=== PATIENT | female | born 1985 | race Caucasian/White ===

== ENCOUNTER → 2018-01-22 18:16 | Outpatient (CLI) | payer OTHER, SELFPAY ==
--- NOTE | 2018-01-22 18:25 | US_ITS ---
STUDY: SECOND AND THIRD TRIMESTER OBSTETRICAL ULTRASOUND REASON FOR EXAM: Female, 32 years old. Anatomy scan LMP: TECHNIQUE: Transabdominal PRIOR ULTRASOUND: None. FINDINGS: There is a single intrauterine fetus. The fetus is in a cephalic presentation. There is demonstrated cardiac activity with a heart rate of 150 bpm. There is a normal amniotic fluid volume. The largest amniotic fluid pocket measures 3.9. cm. The placenta is posterior in location and is not low lying. There may be a succenturiate lobe. There are Grade 0 placental changes. The cervix measures 3.6 cm in length. The adnexal regions are not visualized. BIOMETRY: BPD: 50 mm: 21 weeks, 2 days HC: 189mm: 21 weeks, 2 days AC: 174mm: 22 weeks, 3 days FL: 37mm: 21 weeks, 5 days CI: 81 FL/BPD: 73 FL/HC: FL/AC: 21 HC/AC: 1.09 age by current US: 21 weeks, 5 days. [place] by current US: 9.4.18. Estimated weight: 460 grams, +/- 67 grams, 77 %. Age by LMP: 21 weeks, 2 days. [place] by LMP: 9.17.18. ANATOMY: Gender: Male Cranium: Normal lateral ventricles. Normal choroid plexus. Normal cerebellum. Normal cisterna magna. Normal face, nose and lips. Chest: Normal 4-chamber heart. Abdomen/Pelvis: Normal diaphragm. Normal stomach. Normal abdominal wall. Normal cord insertion. Normal 3 vessel cord. Normal kidneys. Normal bladder. Spine: Normal cervical spine. Normal thoracic spine. Normal lumbar spine. Normal sacrum. Extremities: Normal bilateral upper extremities. Normal bilateral lower extremities. US/OB Anatomy Scan IMPRESSION: There is a single live intrauterine with a heart rate of 150 bpm. age by current US: 21 weeks, 5 days. [place] by current US: 9.4.18. Unremarkable anatomic survey. The placenta is posterior in location and is not low lying. There may be a succenturiate lobe. Electronically Signed: Brian Agee MD at 21:18 EDT , Service support ,
== END ==
PROVIDERS: Family Provider Preventive Medicine Occupational Medicine; PCP Preventive Medicine Occupational Medicine; Visit Provider Obstetrics & Gynecology
DX: Z36.89 Encounter for other specified antenatal screening (principal)
CPT/HCPCS: 76805

== ENCOUNTER → 2018-03-10 11:52 | Outpatient (CLI) | payer OTHER, SELFPAY ==
[2018-03-10 13:11] LABS: Absolute Lymphocyte Count 1.53 X10^3/ul (0.83-4.51); Basophil# 0.01 X10^3/uL; Basophil% 0.1 % (0-1); Eosinophil# 0.07 X10^3/uL; Eosinophils% 0.8 % (0-5); Hematocrit 37.3 % (37-47); Hemoglobin 12.8 g/dl (12.0-15.0); Lymphocyte # 1.53 X10^3/ul (4.0); Lymphocyte % 18.5 % (19-41); Mean Corp Hgb Conc 34.3 g/gl (32-36); Mean Corpuscular Volume 99.2 fL (81-99); Mean Platelet Vol. 10.8 fl (6.2-12.0); Monocyte# 0.63 X10^3/uL; Monocyte% 7.6 % (0-10); Neutrophil # 6.02 X10^3/uL (2.7-7.7); Neutrophil % 72.6 % (47-70); Platelet Count 225 K/mm3 (150-450); RBC Distribution Width CV 13.4 % (11.6-14.6); RBC Distribution Width SD 47.6 fl (35.1-43.9); Red Blood Count 3.76 M/mm3 (4.2-5.4); White Blood Count 8.3 K/mm3 (4.4-11.0)
[2018-03-10 13:12] LABS: POSITIVE COUNT NO; POSITIVE DIFFERENTIAL NO; POSITIVE MORPHOLOGY NO
[2018-03-10 13:25] LABS: Glucose Challenge Gest 1H 50g 108 mg/dL (70-140)
== END ==
PROVIDERS: Family Provider Preventive Medicine Occupational Medicine; PCP Preventive Medicine Occupational Medicine; Visit Provider Obstetrics & Gynecology
DX: O09.92 Supervision of high risk pregnancy, unspecified, second trimester (principal)
CPT/HCPCS: 36415; 82950; 85025; 86850; 86900

== ENCOUNTER 2018-04-02 21:45 | Outpatient (CLI) | payer OTHER, SELFPAY ==
[2018-04-02 22:04] VITALS: BMI 35.9
[2018-04-02] MEDS: Betamethasone/Betamethasone 30 MG/5 ML Vial 12 MG IM (22:30)
[2018-04-02 22:35] LABS: ROM Internal Control Test YES-OK TO RESULT pt. (Internal QC); ROM Patient Test POSITIVE (Negative)
[2018-04-02 22:51] LABS: Absolute Lymphocyte Count 2.42 X10^3/ul (0.83-4.51); Absolute Neutrophil Count 7.3 X10^3/uL (2.0-7.7); Basophil# 0.01 X10^3/uL; Basophil% 0.1 % (0-1); Eosinophil# 0.12 X10^3/uL; Eosinophils% 1.1 % (0-5); Hematocrit 39.2 % (37-47); Lymphocyte # 2.42 X10^3/ul (4.0); Lymphocyte % 22.3 % (19-41); Mean Corp Hgb Conc 33.2 g/gl (32-36); Mean Corpuscular Hgb 32.6 pg (27.0-32.0); Mean Corpuscular Volume 98.2 fL (81-99); Mean Platelet Vol. 10.8 fl (6.2-12.0); Monocyte# 1.01 X10^3/uL; Monocyte% 9.3 % (0-10); Neutrophil # 7.26 X10^3/uL (2.7-7.7); Platelet Count 233 K/mm3 (150-450); RBC Distribution Width CV 13.8 % (11.6-14.6); RBC Distribution Width SD 49.1 fl (35.1-43.9); Red Blood Count 3.99 M/mm3 (4.2-5.4); White Blood Count 10.8 K/mm3 (4.4-11.0)
[2018-04-02 22:52] LABS: POSITIVE COUNT NO; POSITIVE DIFFERENTIAL NO; POSITIVE MORPHOLOGY NO
--- NOTE | 2018-04-02 22:52 | OB.TRI.NOTE ---
- Problem List (1) premature rupture of membranes (PPROM) with unknown onset of labor Status: Acute (2) Advanced maternal age risk, currently Status: Acute Comment: normal NIPT, growth us in the the third trimester (3) Supervision of high risk in second trimester Status: Acute Comment: PRR [place] 06/02/18 boy boyfriend Dale History of Present Illness Date of Service: 04/02/18 Reason For Visit: R/O LABOR Date of Service: 04/02/18 Final [place]: 06/02/18 Gestational age: 31 Weeks and 2 Days History of Present Illness: 33 yo @ 31w2d presents with PPROM at 2100 tonight clear fluid. she has had a clomid with negative NIPT screening and no complications. she denies any vb or ctx and admits good fm. Allergies No Known Allergies Allergy (Verified 03/25/18 11:59) - Pertinent Past Medical History Surgical History: Past Surgical History (Last Reviewed 03/25/18 @ 11:59 by Diana Crouch) S/P tonsillectomy palatal expansion Pertinent Past Medical History: Mom's Labs & Results 04/02/18 04/02/18 22:13 22:40 WBC 10.8 RBC 3.99 L Hgb 13.0 Hct 39.2 MCV 98.2 MCH 32.6 H MCHC 33.2 RDW 13.8 RDW Differential 49.1 H Plt Count 233 MPV 10.8 Immature Gran % (Auto) 0.200 Neut % (Auto) 67.0 Lymph % (Auto) 22.3 [place] % (Auto) 9.3 Eos % (Auto) 1.1 Baso % (Auto) 0.1 Absolute Neuts (auto) 7.3 Absolute Lymphs (auto) 2.42 Total Counted Not Reportable Vag Amniotic Fld Detect POSITIVE H Social History Smoking Status Former smoker ROS: General: negative [employer]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 Negative for: Thyromegaly, Lymphadenopathy Cardiovascular: Regular rate Lungs: Normal air movement Abdomen: Soft, Non Tender, Gravid Neurological: Deep Tendon Reflexes 2+/4 and Symmetrical, Neuro grossly intact. 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 Negative for: Vulvar lesions Estimated gestational size: Appropriate for gestational size Presentation: Breech Cervix Dilation (cm): 2.5 Station: -1 Effacement (%): 80 NST - FHR Rate Baby A Baseline: 130 Variability:: Moderate Accelerations:: 15 x 15 Decelerations:: None NST Reactive:: Yes FHR Category:: Category I Uterine Activity:: occasional ctx Impression/Plan 33 yo @ 31w2d presents PPROM clear fluid 2100 tonight gross rupture and positive rom plus, breech on us. reassuring FHT, no signs of infection. ampicillin and azithromycin, celestone given. magnesium 6g bolus. transport to [facility]
--- NOTE | 2018-04-02 22:57 | OB.TRI.HP_ITS ---
- Problem List (1) premature rupture of membranes (PPROM) with unknown onset of labor Status: Acute (2) Advanced maternal age risk, currently Status: Acute Comment: normal NIPT, growth us in the the third trimester (3) Supervision of high risk in second trimester Status: Acute Comment: PRR [place] 06/02/18 boy boyfriend Dale History of Present Illness Date of Service: 04/02/18 Reason For Visit: R/O LABOR Date of Service: 04/02/18 Final [place]: 06/02/18 Gestational age: 31 Weeks and 2 Days History of Present Illness: 33 yo @ 31w2d presents with PPROM at 2100 tonight clear fluid. she has had a clomid with negative NIPT screening and no complications. she denies any vb or ctx and admits good fm. Allergies No Known Allergies Allergy (Verified 03/25/18 11:59) - Pertinent Past Medical History Surgical History: Past Surgical History (Last Reviewed 03/25/18 @ 11:59 by Diana Crouch) S/P tonsillectomy palatal expansion Pertinent Past Medical History: Mom's Labs & Results 04/02/18 04/02/18 22:13 22:40 WBC 10.8 RBC 3.99 L Hgb 13.0 Hct 39.2 MCV 98.2 MCH 32.6 H MCHC 33.2 RDW 13.8 RDW Differential 49.1 H Plt Count 233 MPV 10.8 Immature Gran % (Auto) 0.200 Neut % (Auto) 67.0 Lymph % (Auto) 22.3 [place] % (Auto) 9.3 Eos % (Auto) 1.1 Baso % (Auto) 0.1 Absolute Neuts (auto) 7.3 Absolute Lymphs (auto) 2.42 Total Counted Not Reportable Vag Amniotic Fld Detect POSITIVE H Social History Smoking Status Former smoker ROS: 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 Negative for: Thyromegaly, Lymphadenopathy Cardiovascular: Regular rate Lungs: Normal air movement Abdomen: Soft, Non Tender, Gravid Neurological: Deep Tendon Reflexes 2+/4 and Symmetrical, Neuro grossly intact. 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 Negative for: Vulvar lesions Estimated gestational size: Appropriate for gestational size Presentation: Breech Cervix Dilation (cm): 2.5 Station: -1 Effacement (%): 80 NST - FHR Rate Baby A Baseline: 130 Variability:: Moderate Accelerations:: 15 x 15 Decelerations:: None NST Reactive:: Yes FHR Category:: Category I Uterine Activity:: occasional ctx Impression/Plan 33 yo @ 31w2d presents PPROM clear fluid 2100 tonight gross rupture and positive rom plus, breech on us. reassuring FHT, no signs of infection. ampicillin and azithromycin, celestone given. magnesium 6g bolus. transport to [facility]
[2018-04-02] MEDS: Mag Hydrox/Al Hydrox/Simeth 30 ML UDC PO (23:03)
[2018-04-02] MEDS: Azithromycin 250 MG Tablet 1000 MG PO (23:03)
--- NOTE | 2018-04-02 23:35 | NURSING ---
Report called to [facility] L & D RN, per this nurse.
[2018-04-03 00:01] LABS: Group B Strep DNA By PCR Negative (Negative); Internal Control PASS; Probe Check PASS; Specimen Processing Control PASS
== END 2018-04-03 | disposition home or self-care (01) ==
LOC: WPOUT 22:01 → WP 22:02
PROVIDERS: Family Provider Preventive Medicine Occupational Medicine; PCP Preventive Medicine Occupational Medicine; Visit Provider Obstetrics & Gynecology
DX: O42.913 Preterm premature rupture of membranes, unspecified as to length of time between rupture and onset of labor, third trimester (principal); O32.1XX0 Maternal care for breech presentation, not applicable or unspecified; Z3A.31 31 weeks gestation of pregnancy
CPT/HCPCS: 36415; 59025; 59050; 76815; 84112; 85025; 87081; 87086; 87653; 96372; 99218; G0378; J0702

== ENCOUNTER → 2020-05-13 16:33 | Outpatient (CLI) | payer OTHER, SELFPAY ==
--- NOTE | 2020-05-13 16:38 | US_ITS ---
STUDY: FIRST TRIMESTER OBSTETRICAL ULTRASOUND REASON FOR EXAM: Female, 35 years old. well being. LMP: 02/29/2020. TECHNIQUE: Transvaginal TECHNICAL QUALITY: Adequate. PRIOR ULTRASOUND: None. FINDINGS: There is visualization of a single gestational sac in a normal intrauterine position. The mean sac diameter (MSD) measures 5.01 cm, indicating an estimated gestational age (EGA) of 11 weeks, 1 days. The gestational sac shape is within normal limits. There is a visualized yolk sac. The yolk sac measures 0.44 cm. There is visualization of the placenta. The placenta appears to be anterior and fundal in location and grade 0 in appearance. There is visualization of a live embryo. The crown-rump length (CRL) measures 4.57 cm, indicating an estimated gestational age (EGA) of 11 weeks, 3 days. There is demonstrated cardiac activity with a heart rate of 149 bpm. The estimated gestation age (EGA) by LMP is 10 weeks, 4 days. The estimated date of delivery ([place]) by LMP is 12/05/2020. The estimated gestation age (EGA) by US is 11 weeks, 2 days. The estimated date of delivery ([place]) by US is 11/30/2020. The uterus measures 11.4 x 10.9 x 7.5 cm. There is a 4.0 x 3.5 x 3.2 cm fibroid in the posterior right fundus. The cervix is closed. The right ovary measures 3.0 x 2.3 x 1.5 cm. There are multiple follicles of the right ovary without a dominant cyst. There is no visualized right adnexal mass or complex lesion. The left ovary is not visualized. There is no visualized left adnexal mass or complex lesion. There is no fluid in the cul de sac. US/Init OB < 14Wks US IMPRESSION: 1. Live single intrauterine at 11 weeks, 2 days. [place] is 11/30/2020. 2. heart rate of 149 bpm. 3. Fundal and anterior grade 0 placenta. 4. Normal right ovary. The left ovary is not seen. 5. Right posterior fundal fibroid. Electronically Signed: Sharad Kraft DO at 19:36 EDT Tel [phone], Service support ,
== END ==
PROVIDERS: PCP Preventive Medicine Occupational Medicine; Referring Provider Obstetrics & Gynecology; Visit Provider Obstetrics & Gynecology
DX: O09.92 Supervision of high risk pregnancy, unspecified, second trimester (principal); Z3A.00 Weeks of gestation of pregnancy not specified
CPT/HCPCS: 76801

== ENCOUNTER → 2020-05-26 17:02 | Outpatient (CLI) | payer OTHER, SELFPAY ==
[2020-05-26 16:23] VITALS: BMI 33.0
[2020-05-26 17:50] LABS: Absolute Lymphocyte Count 2.18 X10^3/uL (0.83-4.51); Basophil# 0.03 X10^3/uL; Basophil% 0.4 % (0-1); Eosinophil# 0.13 X10^3/uL; Eosinophils% 1.6 % (0-5); Hematocrit 41.7 % (37-47); Hemoglobin 13.9 g/dL (12.0-15.0); Lymphocyte # 2.18 X10^3/ul (4.0); Lymphocyte % 27.3 % (19-41); Mean Corp Hgb Conc 33.3 g/dL (32-36); Mean Corpuscular Hgb 33.3 pg (27.0-32.0); Mean Corpuscular Volume 99.8 fL (81-99); Mean Platelet Vol. 11.1 fl (6.2-12.0); Monocyte# 0.63 X10^3/uL; Monocyte% 7.9 % (0-10); NRBC Flagged by Analyzer 0 % (0-5); Neutrophil # 4.99 X10^3/uL (2.7-7.7); Neutrophil % 62.5 % (47-70); Platelet Count 266 K/mm3 (150-450); RBC Distribution Width CV 12.6 % (11.6-14.6); RBC Distribution Width SD 45.9 fl (35.1-43.9); Red Blood Count 4.18 M/mm3 (4.2-5.4)
[2020-05-26 18:24] LABS: NATERA MAILED SPECIMEN
[2020-05-26 19:00] LABS: Amphetamine Urine VISTA NEGATIVE (<1000 ng/mL); Barbiturate Urine VISTA NEGATIVE (< 200 ng/mL); Benzodiazepine Urine VISTA NEGATIVE (< 200 ng/mL); Cocaine Urine VISTA NEGATIVE (< 300 ng/mL); Ecstacy Urine VISTA NEGATIVE (< 500 ng/mL); Methadone Urine VISTA NEGATIVE (< 300 ng/mL); PCP Urine VISTA NEGATIVE (< 25 ng/mL); THC Urine VISTA NEGATIVE (< 50 ng/mL); Vista UDS pH Range 6
[2020-05-27 09:20] LABS: HIV - WCH Non-Reactive (Nonreactive); Hepatitis B Surface Antigen Non-Reactive (Nonreactive); Hepatitis C Antibody Non-Reactive (Nonreactive)
[2020-05-31 03:06] LABS: Chlamydia By Nucleic Acid AMP Negative (Negative)
[2020-05-31 09:40] LABS: Gonococcus By Nucleic Acid AMP Negative (Negative)
[2020-05-31 16:02] LABS: HPV APTIMA, High Risk Negative (Negative)
[2020-06-02 04:30] LABS: Rapid Plasmin Reagin (RPR) NONREACTIVE (NONREACTIVE)
== END ==
PROVIDERS: PCP Preventive Medicine Occupational Medicine; Referring Provider Obstetrics & Gynecology; Visit Provider Obstetrics & Gynecology
DX: O09.522 Supervision of elderly multigravida, second trimester (principal); Z3A.00 Weeks of gestation of pregnancy not specified
CPT/HCPCS: 36415; 80307; 85025; 86592; 86703; 86762; 86803; 86850; 86900; 86901; 87086; 87088; 87340; 87491; 87591; 87624; 88175; G0145

== ENCOUNTER → 2020-06-24 13:53 | Outpatient (CLI) | payer OTHER, SELFPAY ==
[2020-05-27 08:42] VITALS: BMI 33.0
[2020-06-24 15:31] LABS: Glucose Challenge Gest 1H 50g 98 mg/dL (70-140)
== END ==
PROVIDERS: PCP Preventive Medicine Occupational Medicine; Visit Provider Obstetrics & Gynecology
DX: O99.210 Obesity complicating pregnancy, unspecified trimester (principal); E66.9 Obesity, unspecified; Z3A.00 Weeks of gestation of pregnancy not specified
CPT/HCPCS: 36415; 82950

== ENCOUNTER → 2020-07-21 16:01 | Outpatient (CLI) | payer OTHER, SELFPAY ==
[2020-06-24 14:32] VITALS: BMI 33.0
[2020-07-20 16:06] VITALS: BMI 34.2
--- NOTE | 2020-07-21 16:02 | US_ITS ---
STUDY: SECOND AND THIRD TRIMESTER OBSTETRICAL ULTRASOUND REASON FOR EXAM: Female, 35 years old ANATOMY LMP: 02/29/2020. TECHNIQUE: Transabdominal TECHNICAL QUALITY: Adequate. PRIOR ULTRASOUND: Comparison is made with prior study dated 05/13/2020. FINDINGS: There is a single intrauterine fetus. The fetus is in a breech presentation. There is demonstrated cardiac activity with a heart rate of 153 bpm. There is a normal amniotic fluid volume. The largest amniotic fluid pocket measures 4.4 cm x 4.0 cm. The amniotic fluid index (YVROSE) is within normal limits. The placenta is anterior in location and is not low lying. There are Grade 1 placental changes. The cervix measures 4 cm in length. The bilateral adnexal regions are normal. Incidental note is made of a 3 cm x 2.5 cm x 3 centimeter uterine fibroid. BIOMETRY: BPD: 4.84 cm: 20 weeks, 4 days HC: 18.75 cm: 21 weeks, 0 days AC: 17.11 cm: 22 weeks, 0 days FL: 3.3 cm: 20 weeks, 2 days CI: 74% FL/BPD: 68% FL/HC: FL/AC: 19% HC/AC: 1.1 age by current US: 20 weeks, 6 days. [place] by current US: 12/02/2020. Estimated weight: 410 grams, +/- 62 grams, 85 %. Age by LMP: 20 weeks, 3 days. [place] by LMP: 12/05/2020. ANATOMY: Gender: Female Cranium: Normal lateral ventricles. Normal choroid plexus. Normal cerebellum. Normal cisterna magna. Normal face, nose and lips. Chest: Normal 4-chamber heart. Abdomen/Pelvis: Normal diaphragm. Normal stomach. Normal abdominal wall. Normal cord insertion. Normal 3 vessel cord. Normal kidneys. Normal bladder. Spine: Normal cervical spine. Normal thoracic spine. Normal lumbar spine. Normal sacrum. Extremities: Normal bilateral upper extremities. Normal bilateral lower extremities. US/OB Anatomy Scan IMPRESSION: Single live intrauterine gestation with a mean gestational age of 20 weeks and 6 days. Electronically Signed: Rocael Sharif, at 13:16 EST , Service support ,
== END ==
PROVIDERS: PCP Preventive Medicine Occupational Medicine; Referring Provider Obstetrics & Gynecology; Visit Provider Obstetrics & Gynecology
DX: O09.90 Supervision of high risk pregnancy, unspecified, unspecified trimester (principal); Z3A.00 Weeks of gestation of pregnancy not specified
CPT/HCPCS: 76805

== ENCOUNTER → 2020-07-28 09:10 | Outpatient (CLI) | payer OTHER, SELFPAY ==
[2020-07-20 16:06] VITALS: BMI 34.2
== END ==
PROVIDERS: PCP Preventive Medicine Occupational Medicine; Referring Provider Obstetrics & Gynecology; Visit Provider Obstetrics & Gynecology
DX: U07.1 COVID-19 (principal)
CPT/HCPCS: 87635; C9803; U0003

== ENCOUNTER → 2020-08-12 16:14 | Outpatient (CLI) | payer OTHER, SELFPAY ==
[2020-06-24 14:32] VITALS: BMI 33.0
[2020-07-20 16:06] VITALS: BMI 34.2
--- NOTE | 2020-08-12 16:20 | US_ITS ---
STUDY: SECOND AND THIRD TRIMESTER OBSTETRICAL ULTRASOUND - LIMITED REASON FOR EXAM: Female, 35 years old cervical length LMP: 02/29/2020 PRIOR ULTRASOUND: 07/21/2020 TECHNIQUE: Transabdominal TECHNICAL QUALITY: Adequate. FINDINGS: There is a single intrauterine fetus. The fetus is in a breech presentation. There is demonstrated cardiac activity with a heart rate of 144 bpm. There is a normal amniotic fluid volume. The placenta is anterior in location and is not low lying. There are Grade 0 placental changes. The cervix measures 4.1 cm in length. Biometry was not performed. Age by LMP: 23 weeks, 4 days. [place] by LMP: 12/05/2020. age by prior US: 24 weeks, 0 days. [place] by prior US: 12/02/2020. Placental wilson at PC1 measuring 2.5 x 2.4 x 1.9 cm US/OB Limited (No Biometrics) IMPRESSION: Limited exam as above. Cervix measuring 4.1 cm in length. Normal appearance of amniotic fluid. heart rate of 144 bpm. Incidentally noted is breech positioning Electronically Signed: Konrad Levine DO at 9:01 EST Tel , Service support ,
== END ==
PROVIDERS: PCP Preventive Medicine Occupational Medicine; Referring Provider Obstetrics & Gynecology; Visit Provider Obstetrics & Gynecology
DX: Z34.92 Encounter for supervision of normal pregnancy, unspecified, second trimester (principal); Z3A.00 Weeks of gestation of pregnancy not specified
CPT/HCPCS: 76815

== ENCOUNTER → 2020-08-26 16:25 | Outpatient (CLI) | payer OTHER, SELFPAY ==
[2020-06-24 14:32] VITALS: BMI 33.0
[2020-08-17 16:08] VITALS: BMI 34.6
--- NOTE | 2020-08-26 16:27 | US_ITS ---
STUDY: SECOND AND THIRD TRIMESTER OBSTETRICAL ULTRASOUND - LIMITED REASON FOR EXAM: Female, 35 years old CERVICAL LENGTH LMP: 02/29/2020 PRIOR ULTRASOUND: 08/12/2020 TECHNIQUE: Transabdominal TECHNICAL QUALITY: Adequate. FINDINGS: There is a single intrauterine fetus. The fetus is in an transverse lie with the head on the maternal left side. There is demonstrated cardiac activity with a heart rate of 153 bpm. There is a normal amniotic fluid volume. The largest amniotic fluid pocket measures 5.0 cm. The amniotic fluid index (YVROSE) is cm. The placenta is anterior in location and is not low lying. There are Grade 0 placental changes. The cervix measures 3.2 cm in length. Age by LMP: 25 weeks, 4 days. [place] by LMP: 12/05/2020. US/OB Limited (No Biometrics) IMPRESSION: Living intrauterine of 25 weeks 4 days as described above. Cervical length of 3.2 cm. Electronically Signed: Ko Muniz MD at 12:16 EST Tel , Service support ,
== END ==
PROVIDERS: PCP Preventive Medicine Occupational Medicine; Referring Provider Obstetrics & Gynecology; Visit Provider Obstetrics & Gynecology
DX: Z36.89 Encounter for other specified antenatal screening (principal)
CPT/HCPCS: 76815

== ENCOUNTER → 2020-09-14 12:52 | Outpatient (CLI) | payer OTHER, SELFPAY ==
[2020-08-17 16:08] VITALS: BMI 34.6
[2020-09-14 13:39] LABS: Glucose Challenge Gest 1H 50g 97 mg/dL (70-140)
[2020-09-14 13:50] LABS: Absolute Lymphocyte Count 1.64 X10^3/uL (0.83-4.51); Absolute Neutrophil Count 6.8 X10^3/uL (2.0-7.7); Basophil# 0.03 X10^3/uL; Basophil% 0.3 % (0-1); Eosinophil# 0.16 X10^3/uL; Eosinophils% 1.7 % (0-5); Hematocrit 38.8 % (37-47); Hemoglobin 12.7 g/dL (12.0-15.0); Lymphocyte # 1.64 X10^3/ul (4.0); Lymphocyte % 17.5 % (19-41); Mean Corp Hgb Conc 32.7 g/dL (32-36); Mean Corpuscular Hgb 33.2 pg (27.0-32.0); Mean Corpuscular Volume 101.3 fL (81-99); Mean Platelet Vol. 10.2 fl (6.2-12.0); Monocyte# 0.67 X10^3/uL; Monocyte% 7.1 % (0-10); NRBC Flagged by Analyzer 0 % (0-5); Neutrophil # 6.83 X10^3/uL (2.7-7.7); Neutrophil % 72.9 % (47-70); Platelet Count 261 K/mm3 (150-450); RBC Distribution Width SD 51.9 fl (35.1-43.9); Red Blood Count 3.83 M/mm3 (4.2-5.4); White Blood Count 9.4 K/mm3 (4.4-11.0)
== END ==
PROVIDERS: PCP Preventive Medicine Occupational Medicine; Referring Provider Obstetrics & Gynecology; Visit Provider Obstetrics & Gynecology
DX: O09.90 Supervision of high risk pregnancy, unspecified, unspecified trimester (principal); Z3A.00 Weeks of gestation of pregnancy not specified; Z13.1 Encounter for screening for diabetes mellitus
CPT/HCPCS: 36415; 82950; 85025

== ENCOUNTER → 2020-10-28 15:55 | Outpatient (CLI) | payer OTHER, SELFPAY ==
[2020-06-24 14:32] VITALS: BMI 33.0
[2020-10-26 16:12] VITALS: BMI 37.0
--- NOTE | 2020-10-28 16:01 | US_ITS ---
STUDY: SECOND AND THIRD TRIMESTER OBSTETRICAL ULTRASOUND - LIMITED REASON FOR EXAM: Female, 35 years old routine survey LMP: 02/29/2020 PRIOR ULTRASOUND: 08/26/2020 TECHNIQUE: Transabdominal TECHNICAL QUALITY: Adequate. FINDINGS: There is a single intrauterine fetus. The fetus is in a cephalic presentation. There is demonstrated cardiac activity with a heart rate of 147 bpm. There is a normal amniotic fluid volume. The largest amniotic fluid pocket measures 6.6 cm. The amniotic fluid index (YVROSE) is 18.0 cm. The placenta is anterior in location and is not low lying. There are Grade 1 placental changes. The cervix measures 3.4 cm in length. Incidental note is made of a right fundal fibroid measuring 4.3 x 3.6 x 3.7 cm BIOMETRY: BPD: 8.64 cm: 34 weeks, 5 days HC: 32.34 cm: 36 weeks, 3 days AC: 32.45 cm: 36 weeks, 2 days FL: 6.79 cm: 34 weeks, 6 days age by prior US: 25 weeks, 4 days. [place] by prior US: 12/05/2020. age by current US: 35 weeks, 4 days. [place] by current US: 11/28/2020. Estimated weight: 2776 grams, +/- 416 grams, 80 percentile. Gender: Indeterminant US/OB Limited With Biometrics IMPRESSION: Single live intrauterine at 35 weeks, 4 days by current ultrasound [place] 11/28/2020. Heart rate 147 bpm. No suspicious sonographic findings, there has been normal growth noted since the previous study. There is a right fundal fibroid measuring 4.3 x 3.6 x 3.7 cm Electronically Signed: Gonzalo Benites MD at 17:06 EST , Service support ,
== END ==
PROVIDERS: PCP Preventive Medicine Occupational Medicine; Referring Provider Obstetrics & Gynecology; Visit Provider Obstetrics & Gynecology
DX: O09.93 Supervision of high risk pregnancy, unspecified, third trimester (principal); Z3A.35 35 weeks gestation of pregnancy
CPT/HCPCS: 76816

== ENCOUNTER → 2020-11-11 16:00 | Outpatient (CLI) | payer OTHER, SELFPAY ==
[2020-10-13 16:09] VITALS: BMI 36.4
[2020-11-11 13:58] VITALS: BMI 37.5
== END ==
PROVIDERS: PCP Preventive Medicine Occupational Medicine; Referring Provider Obstetrics & Gynecology; Visit Provider Obstetrics & Gynecology
DX: O09.90 Supervision of high risk pregnancy, unspecified, unspecified trimester (principal); Z3A.00 Weeks of gestation of pregnancy not specified
CPT/HCPCS: 87081

== ENCOUNTER 2020-11-28 10:00 | Inpatient (IN) | payer OTHER, SELFPAY ==
[2020-10-13 16:09] VITALS: BMI 36.4
[2020-11-24 15:43] VITALS: BMI 38.2
[2020-11-28] VITALS (16 sets, daily range): BP systolic 92–121; BP diastolic 49–75; PULSE 56–88; RESP 14–18; TEMP 36–36.7; O2SAT 94–98; BMI 37.6
[2020-11-28] MEDS: Acetaminophen 500 MG Tablet 1000 MG PO ×3 (10:42→23:03)
--- NOTE | 2020-11-28 10:53 | PCM.HPOB.BLA ---
- Problem List (1) 37 weeks gestation of Status: Acute Comment: electronic test ordered 11/18/20 (2) Advanced maternal age risk, currently Status: Acute Comment: Discussed genetic testing. (3) COVID-19 virus detected Status: Acute Comment: On ASA. Growths q4 in third trimester. growth US nl (4) H/O section Status: Acute Comment: For PPROM with PTL and Breech presentation. Plans RCS 11/28 @ 12 (5) History of tetanus, diphtheria, and acellular pertussis booster vaccination (Tdap) Status: Acute (6) Obesity affecting Status: Acute Comment: Recommended early 1h GTT- NL (7) Status: Acute Qualifiers: Comment: genetic- low risk, carrier-declined, NTD declined. (8) premature rupture of membranes (PPROM) with unknown onset of labor Status: Acute Comment: delivery at 32 weeks; progesterone injections starting at 16 weeks, CL screening q2w starting at 16w, US normal, 08/27 CL normal (9) Supervision of high risk , antepartum Status: Acute Comment: PRR [place] 12/05/20 girl PC: Kevin Spouse: Dale (10) Uterine fibroid Status: Acute Comment: right fundal fibroid measuring 4.3 x 3.6 x 3.7 cm History and Physical Date of Admission: 11/28/20 Intake Vital Signs 11/24/20 Height 5 ft 5 in 11/24/20 Weight: 230 lb 11/24/20 BMI 38.2 11/24/20 BP 124/84 H Intake Visit Reasons: 38WK OB 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 Is patient in pain?: No Allergies No Known Allergies Allergy (Verified 11/24/20 15:44) Medications prenat.vits,oscar,[id number] 1 tab PO QDAY 12/23/17 [History Confirmed 11/24/20] famotidine 20 mg tablet 20 mg PO DAILY #30 tab 09/30/20 [Rx Confirmed 11/24/20] breast pump See Rx Instructions .ROUTE .MEDSUPPLY #1 ea 11/21/20 [Rx Confirmed 11/24/20] Last Menstral Period: 02/29/20 Zika: Zika virus screening: Negative [facility] Medical History Obesity affecting (Acute) premature rupture of membranes (PPROM) with unknown onset of labor (Acute) Surgical History H/O section (Acute) S/P tonsillectomy (Resolved) palatal expansion (Resolved) Family History Mother Hypertension Aunt Breast cancer Grandfather Lung cancer Social History (Updated 11/24/20 @ 15:[address] 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 Date Name GA/Weeks Outcome Route Bth Weight Infant Gen Labor Lgth Anesthesia Del Locatn Provider FOB 04/08/18 Kevin Albrecht 32 live - 4 lbs Male 6 hours spinal [place] HPI 38WK OB : Details: DOMO WATERS is a 35 year old who presents for routine OB visit. OB Visit [place] Calculator Estimated Delivery Date Method Current WG Current Estimate 12/05/20 Ultrasound #1 38w 3d Expected Delivery Route/Plan Planning RLTCS and BTL Will schedule on 11/28 w/ GP Labor Preferences- CB/BF classes: no labor support person: Dale PP control planned: BTL Specific Issue/Plans flu vaccine: given tdap vaccine: given rhogam: na LARC form signed: yes movement and labor precautions reviewed. Problem list reviewed and updated with the most current plan of care details and appropriate orders placed. Relevant counseling for the gestational age provided. Continue routine care and follow up unless otherwise noted in visit notes/problem list details Initial Weight: 203 lb Date EGA Weight BP Urine Prot Glucose FHR FuHt Pres Dilation Effaced St Visit Note 05/26/20 12w 3d 203 lb (+0 oz) 160 GP - [place] by prior US. Denies cramping and bleeding. 06/24/20 16w 4d 203 lb (+0 oz) 112/76 Negative Negative 150 SM- no vb lof some fm. order CL screneing and anatomy scan 07/20/20 20w 2d 205 lb 6 oz (+2 lb 6 oz) 116/78 Negative Negative 145 GP - no LOF, VB, DFM. Reports rash on her abdomen in back. Not consistent with PUPPS. Recommended eval by PCP. Anatomy scan scheduled for tomorrow. 08/17/20 24w 2d 208 lb (+5 lb) 120/72 150 GP - no LOF, VB, DFM, ctx. Still has rash present. Exam this time more concerning for PUPPs. Plan steroid taper. 09/14/20 28w 2d 212 lb 4 oz (+9 lb 4 oz) 118/70 Negative Negative 141 29 MH-Good FM. No VB, LOF. US q2w for CL. Still on kimberlyn inj weekly. tdap, larc, 28 wk labs. 09/30/20 30w 4d 216 lb (+13 lb) Negative Negative 140 31 SM- no vb lof good fm no regular ctx discussed tolac or 10/13/20 32w 3d 219 lb (+16 lb) 114/82 Negative Negative 145 32 GP - no LOF, VB, DFM, ctx. Message sent to schedule RCD and BTL. 10/26/20 34w 2d 223 lb (+20 lb) 130/80 Negative Negative 145 34 GP - no LOF, VB, DFM, ctx. Discussed COVID vaccine in . 11/11/20 36w 4d 226 lb (+23 lb) 122/84 Negative Negative 140 37 Cephalic 2 SM- no vb lof good fm no reuglar ctx gbs done 11/17/20 37w 3d 227 lb (+24 lb) 110/84 110/84 Negative Negative 38 Cephalic SM- no vb lof good fm no regular ctx 11/24/20 38w 3d 230 lb (+27 lb) 124/84 140 39 Cephalic Sm- no vb lof good fm no regular ctx ACOG First Trimester First Trimester: Diagnostics Diagnostics Diagnostics Glucose 1 Hr 50 gm 97 mg/dL (70-140) 09/14/20 Hgb 12.7 g/dL (12.0-15.0) 09/14/20 Hct 38.8 % (37-47) 09/14/20 Details: HIV: Urine Culture: Sequential Screen: NIPT Screen: ROS Const Reports system reviewed and no additional complaints, except as docu Card Reports system reviewed and no additional complaints, except as docu Resp Reports system reviewed and no additional complaints, except as docu GI Reports system reviewed and no additional complaints, except as docu, Reports nausea Reports system reviewed and no additional complaints, except as docu Musc Reports system reviewed and no additional complaints, except as docu Exam Const General: cooperative, healthy appearing, comfortable, anxious HENCO Head: normal to inspection Nose: external nose normal Face and sinus: normal facial exam Neck Neck: normal visual inspection, full ROM, no lymphadenopathy Thyroid: thyroid normal Chest Chest palpation & inspection: normal inspection of the chest Resp Effort & Inspection: normal respiratory effort GI Inspection: normal to inspection Palpation: soft, other (gravid uterus) Other: infant vertex and appropriate size for gestational age Other: Cervical Exam: Extrem General: pedal edema Assessment & Plan Problems 1. premature rupture of membranes (PPROM) with unknown onset of labor O42.919 delivery at 32 weeks; progesterone injections starting at 16 weeks, CL screening q2w starting at 16w, US normal, 08/27 CL normal 2. Supervision of high risk , antepartum O09.90 PRR [place] 12/05/20 girl PC: Kevin Spouse: Dale 3. Z34.90 genetic- low risk, carrier-declined, NTD declined. 4. Obesity affecting O99.210 Recommended early 1h GTT- NL 5. H/O section Z98.891 For PPROM with PTL and Breech presentation. Plans [facility] [email or web address]] 11/28 @ 12 6. COVID-19 virus detected U07.1 On ASA. Growths q4 in third trimester. growth US nl 7. History of tetanus, diphtheria, and acellular pertussis booster vaccination (Tdap) Z92.29 8. Uterine fibroid D25.9 right fundal fibroid measuring 4.3 x 3.6 x 3.7 cm 9. 37 weeks gestation of Z3A.37 electronic test ordered 11/18/20 10. Advanced maternal age risk, currently Discussed genetic testing. UPDATE- I have seen the patient and performed any clinically relevant updates to the history and physical exam. Francie Tavares MD
[2020-11-28] MEDS: Lactated Ringers 1,000 ML 999 ML IV (10:55)
[2020-11-28 11:05] LABS: Absolute Lymphocyte Count 1.56 X10^3/uL (0.83-4.51); Absolute Neutrophil Count 5.6 X10^3/uL (2.0-7.7); Basophil# 0.03 X10^3/uL; Basophil% 0.4 % (0-1); Eosinophil# 0.08 X10^3/uL; Hematocrit 40.3 % (37-47); Hemoglobin 13.5 g/dL (12.0-15.0); Lymphocyte # 1.56 X10^3/ul (4.0); Lymphocyte % 19.6 % (19-41); Mean Corp Hgb Conc 33.5 g/dL (32-36); Mean Corpuscular Hgb 32.7 pg (27.0-32.0); Mean Corpuscular Volume 97.6 fL (81-99); Monocyte# 0.63 X10^3/uL; Monocyte% 7.9 % (0-10); NRBC Flagged by Analyzer 0 % (0-5); Neutrophil % 70.6 % (47-70); Platelet Count 255 K/mm3 (150-450); RBC Distribution Width CV 13.5 % (11.6-14.6); RBC Distribution Width SD 48.2 fl (35.1-43.9); Red Blood Count 4.13 M/mm3 (4.2-5.4); White Blood Count 7.9 K/mm3 (4.4-11.0)
[2020-11-28] MEDS: Sodium Citrate/Citric Acid 30 ML UDC PO (11:53)
--- NOTE | 2020-11-28 12:02 | OP.PCM_ITS ---
Problem List (1) 37 weeks gestation of Status: Acute Comment: electronic test ordered 11/18/20 (2) Advanced maternal age risk, currently Status: Acute Comment: Discussed genetic testing. (3) COVID-19 virus detected Status: Acute Comment: On ASA. Growths q4 in third trimester. growth US nl (4) H/O section Status: Acute Comment: For PPROM with PTL and Breech presentation. Plans RCS 11/28 @ 12 (5) History of tetanus, diphtheria, and acellular pertussis booster vaccination (Tdap) Status: Acute (6) Obesity affecting Status: Acute Comment: Recommended early 1h GTT- NL (7) Status: Acute Qualifiers: Comment: genetic- low risk, carrier-declined, NTD declined. (8) premature rupture of membranes (PPROM) with unknown onset of labor Status: Acute Comment: delivery at 32 weeks; progesterone injections starting at 16 weeks, CL screening q2w starting at 16w, US normal, 08/27 CL normal (9) Supervision of high risk , antepartum Status: Acute Comment: PRR CAROLINA 12/05/20 girl PC: Kevin Spouse: Dale (10) Uterine fibroid Status: Acute Comment: right fundal fibroid measuring 4.3 x 3.6 x 3.7 cm Delivery Classification: Scheduled Final CAROLINA: 12/05/20 Final CAROLINA Source: LMP Gestational age: 39 Weeks and 0 Days expense clerk: Bridget Yoo Type of Anesthesia:: Spinal Special Medications: Ancef 2 g Date of Procedure: 11/28/20 Pre-Operative Diagnosis: Term , hx , declines TOLAC, desire for permanent sterilization Post-Operative Diagnosis: Same Indications: 35-year-old G2, P1 at 39 weeks gestation presents for scheduled repeat and tubal ligation. The risk, benefits, indications, and alternatives to the procedure were discussed with patient and she voices understanding and agrees to proceed. Indications for : Repeat Elective , Desires elective sterilization Description of Procedure: The patient is a at 39 weeks presented for repeat and tubal ligation. Spinal anesthesia was placed without difficulty. Medley catheter was placed. The patient was placed in the dorsal supine position with leftward tilt. Patient was prepped and draped in the normal sterile fashion. Pfannenstiel skin incision was made with the scalpel and carried through to the underlying layer of fascia with the scalpel. Fascia was nicked in the midline and the incision extended laterally. The rectus bellies were dissected off superiorly and inferiorly with out complication both sharply and bluntly. The peritoneum was entered digitally. The incision was stretched and a low transverse uterine incision was made with the scalpel. The infant's head was delivered atraumatically followed by the anterior and posterior shoulders without complication the rest of the delivered. The cord was clamped and cut and the infant was handed off to awaiting nurse. The placenta was delivered spontaneously immediately following and was noted to be intact and have a three- vessel cord. The uterus was exteriorized cleared of all clots and debris, and the incision was closed in a double layer closure using #1 Monocryl. The ovaries and fallopian tubes were noted to be within normal limits. The fallopian tubes were grasped with a Binta clamps bilaterally the and elevated. The LigaSure device was used to cauterize and transect the mesosalpinx and the tube was amputated at the cornual region. Hemostasis was noted. The uterus was returned to the maternal abdomen and gutters were cleared of all clots and debris. The peritoneum was closed with 3-0 Monocryl in a running fashion. Gloves were changed prior to fascial closure. Fascia was closed with 0 PDS in a running fashion. Subcutaneous tissue was copiously irrigated and the skin was closed with 3-0 Monocryl in a subcuticular fashion. Mepilex dressing was applied without complication. Patient was taken to recovery in stable condition. Amniotic Membrane Rupture Type: Artificial Amniotic Fluid Description: Clear Placenta Disposition: [facility] Specimen(s) sent to pathology: placenta Drain: Medley to straight drain Fluids Replaced: 1000 Cord Entanglement: None Cord Vessel Description: 3 Vessels Esitmated Blood Loss (ml): 500 Infant Gender: Female Delayed cord clamping: Yes Antibiotic Given: Ancef 2 grams IV x1 Pt instructed on risks of surgery: Bleeding, Anesthesia Risks, Infection, Permanency, Failure Rate of 1 to 2% Complications: None Multi Select Codes - Urinary/Genital Urinary/Genital CPT Codes: 25416 Delivery global pkg - with tubal ligation
[2020-11-28] MEDS: Cefazolin 2 GM in 0.9% Normal Saline 100 ML IV (12:05)
--- NOTE | 2020-11-28 12:38 | FALS_PTH ---
PATIENT: DOMO WATERS LOC: [facility] U#:[id number] AGE/SX: 35/F ROOM: [facility] RE11/28/[address]: Dr. Francie Tavares MD : [id number] BED: 1 DIS: 11/30/2020 SPEC #: [id number] RECD: 11/28/20 14:41 STATUS: JAMIL RELor #: [id number] GARRISON: 11/28/20 12:[address]: Francie Tavares DEPT: SURGICAL PATHOLOGY RECD BY: Deysi Vallejo ENTERED: 11/29/20 07:48 SP TYPE: FALL TUBES OTHR DR: Sekou Holder DO Tissues: Fallopian tube Procedures: Surgery Specimen Level II HEADER OPERATION: Tubal ligation PRE-OP DIAGNOSIS: Sterilization TISSUE SUBMITTED: Fallopian tubes, suture in left tube MICROSCOPIC DIAGNOSIS Right and left fallopian tubes, bilateral salpingectomies: Two complete segments of fallopian tubes with no pathologic change. AM:dixon 11/30/2020 MICROSCOPIC DESCRIPTION Slides are reviewed. GROSS DESCRIPTION Received in fixative is one container labeled with the patient's name and designated bilateral fallopian tubes, suture in left tube. The specimen consists of two fallopian tubes with an average length of 5.5 cm and has an average diameter of 0.8 cm. Both fallopian tubes have normal fimbriated ends. No mass lesions are identified. Licensed Clinician sections are submitted in two cassettes as follows: 1 - right fallopian tube, 2 - left fallopian tube. / AM:dixon 11/29/20 TC:4 CPT: 63997 x2
[2020-11-28] MEDS: Ketorolac 30 MG/ML Syringe IV ×2 (13:57→19:40)
[2020-11-28] MEDS: Oxytocin 30 units/NS 500 ml 30 UNITS/500 ML IV.SOLN 167 UNITS IV (13:59)
[2020-11-28 14:44] LABS: Pathology Specimen OB SEE PATHOLOGY REPORT
[2020-11-28] MEDS: Lactated Ringers 1,000 ML 100 ML IV (17:11)
[2020-11-28] MEDS: 0.9% Saline Lock 10 ML Syringe IV (19:40)
[2020-11-29] MEDS: Ketorolac 30 MG/ML Syringe IV ×2 (01:17→07:53)
[2020-11-29] MEDS: 0.9% Saline Lock 10 ML Syringe IV ×2 (01:17→07:54)
[2020-11-29 01:20] VITALS: BP 106/57; PULSE 71; RESP 16; TEMP 36.1; O2SAT 98
--- NOTE | 2020-11-29 01:53 | NURSING ---
report received. this RN to assume care of pt at this time.
[2020-11-29 05:14] VITALS: BP 113/64; PULSE 65; RESP 16; TEMP 37
[2020-11-29] MEDS: Acetaminophen 500 MG Tablet 1000 MG PO ×4 (05:20→23:18)
[2020-11-29 05:34] LABS: Hematocrit 38.3 % (37-47); Hemoglobin 12.7 g/dL (12.0-15.0); Mean Corp Hgb Conc 33.2 g/dL (32-36); Mean Corpuscular Hgb 33.3 pg (27.0-32.0); Mean Corpuscular Volume 100.5 fL (81-99); Mean Platelet Vol. 10.8 fl (6.2-12.0); Platelet Count 222 K/mm3 (150-450); RBC Distribution Width CV 13.8 % (11.6-14.6); RBC Distribution Width SD 51.3 fl (35.1-43.9); Red Blood Count 3.81 M/mm3 (4.2-5.4); White Blood Count 10.5 K/mm3 (4.4-11.0)
--- NOTE | 2020-11-29 07:40 | PN.OBGYN_ITS ---
Patient Problems: Active and Suspected Problems (Last Reviewed 11/24/20 @ 15:44 by Fatou Saldivar) 37 weeks gestation of (Acute) electronic test ordered 11/18/20 Uterine fibroid (Acute) right fundal fibroid measuring 4.3 x 3.6 x 3.7 cm History of tetanus, diphtheria, and acellular pertussis booster vaccination (Tdap) (Acute) COVID-19 virus detected (Acute) On ASA. Growths q4 in third trimester. growth US nl H/O section (Acute) For PPROM with PTL and Breech presentation. Plans RCS 11/28 @ 12 Obesity affecting (Acute) Recommended early 1h GTT- NL (Acute) genetic- low risk, carrier-declined, NTD declined. Supervision of high risk , antepartum (Acute) PRR [place] 12/05/20 girl PC: Kevin Spouse: Dale premature rupture of membranes (PPROM) with unknown onset of labor (Acute) delivery at 32 weeks; progesterone injections starting at 16 weeks, CL screening q2w starting at 16w, US normal, 08/27 CL normal Advanced maternal age risk, currently (Acute) Discussed genetic testing. Subjective: Patient doing well without complaints. Tolerating PO. Ambulating and voiding without difficulty. Breast feeding well. Denies chest pain, shortness of breath, calf pain/swelling, fevers, chills, lightheadedness. - Physical Exam Vitals/I&O's: Vital Signs Temp Pulse Resp BP Pulse Ox 98.6 F 65 16 113/64 98 11/29/20 05:14 11/29/20 05:14 11/29/20 05:14 11/29/20 05:14 11/29/20 01:20 Oxygen Delivery Method Room Air Weight: 226 lb 3.108 oz Body Mass Index (BMI) 37.6 Intake and Output for Last 24 Hours 11/27/20 11/28/20 11/29/20 23:59 23:59 23:59 Intake Total 3013.33 / 3013.33 Output Total 400 / 400 400 / 400 Balance 2613.33 / 2613.33 -400 / -400 General: Alert, Oriented x3, Cooperative Abdomen: Soft, Non-Distended - Dressing dry and intact. FF below U Microbiology Past 72 Hours 11/28/20 09:40 Mucosa - Nose SARS-CoV-2 Antigen (Rapid) - Final Laboratory Results 11/28/20 10:50: WBC 7.9, RBC 4.13 L, Hgb 13.5, Hct 40.3, MCV 97.6, MCH 32.7 H, MCHC 33.5, RDW Std Deviation 48.2 H, RDW Coeff of Jennifer 13.5, Plt Count 255, MPV 11.0, Immature Gran % (Auto) 0.500, Neut % (Auto) 70.6 H, Lymph % (Auto) 19.6, [place] % (Auto) 7.9, Eos % (Auto) 1.0, Baso % (Auto) 0.4, Absolute Neuts (auto) 5.6, Absolute Lymphs (auto) 1.56, Nucleated RBC % 0 11/28/20 10:50: Blood Type O POSITIVE, Antibody Screen NEGATIVE 11/29/20 05:20: WBC 10.5, RBC 3.81 L, Hgb 12.7, Hct 38.3, MCV 100.5 H, MCH 33.3 H, MCHC 33.2, RDW Std Deviation 51.3 H, RDW Coeff of Jennifer 13.8, Plt Count 222, MPV 10.8 Current Medications Acetaminophen (Acetaminophen 500 Mg Tablet) 1,000 mg PO Q6H JORGE A Last Admin: 11/29/20 05:20 Dose: 1,000 mg Documented by: Bisacodyl (Bisacodyl 10 Mg Suppository) 10 mg RC UD PRN PRN Reason: If no BM Diphenhydramine HCl (Diphenhydramine 25 Mg Capsule) 25 mg PO Q6H PRN PRN PRN Reason: ITCHING Stop: 11/29/20 13:34 Enoxaparin Sodium (Enoxaparin 40 Mg/0.4 Ml Syringe) 40 mg SC DAILY [facility] Famotidine (Famotidine 20 Mg Tablet) 20 mg PO DAILY [facility] Hydrocortisone (Hydrocortisone 2.5% Crm) 1 applic TOPICAL TID PRN PRN; Protocol PRN Reason: Discomfort Lactated Ringer's () 1,000 mls @ 100 mls/hr IV .Q10H JORGE A Last Admin: 11/29/20 01:39 Dose: Not Given Documented by: Methylergonovine Maleate (Methylergonovine 0.2 Mg/Ml Ampul) 0.2 mg IM X1 PRN PRN Reason: Uterine Atony Nalbuphine HCl (Nalbuphine 10 Mg/Ml Ampul) 5 mg IV Q3H PRN PRN PRN Reason: ITCHING Stop: 11/29/20 13:34 Naloxone HCl (Naloxone 0.4 Mg/Ml Syringe) 0.02 mg IV Q1M PRN PRN Reason: RR <10 and pt unresponsive Naproxen (Naproxen 250 Mg Tablet) 500 mg PO Q8 JORGE A Ondansetron HCl (Ondansetron 4 Mg/2 Ml Vial) 4 mg IV Q4H PRN PRN PRN Reason: Nausea Oxycodone HCl (Oxycodone 5 Mg Tablet) 5 - 10 mg PO Q4H PRN PRN PRN Reason: Pain Score 4-10 Prochlorperazine Edisylate (Prochlorperazine 10 Mg/2 Ml Vial) 10 mg IV Q6H PRN PRN PRN Reason: NAUSEA Senna/Docusate Sodium (Senna/Docusate Sodium 1 Tablet) 0 tablet PO DAILY JORGE A Simethicone (Simethicone 80 Mg Tablet) 80 mg PO PCHS PRN PRN Reason: Indigestion/stomach pain Sodium Chloride (0.9% Saline Lock 10 Ml Syringe) 5 - 15 ml IV UD PRN PRN Reason: SALINE FLUSH Last Admin: 11/29/20 01:17 Dose: 10 ml Documented by: Medical Necessity - Tobacco Use Smoking Status: Former smoker Assessment/Plan All Active Problems (Last Reviewed 11/24/20 @ 15:44 by Fatou Saldivar) 37 weeks gestation of (Acute) Uterine fibroid (Acute) History of tetanus, diphtheria, and acellular pertussis booster vaccination (Tdap) (Acute) COVID-19 virus detected (Acute) H/O section (Acute) Obesity affecting (Acute) (Acute) Supervision of high risk , antepartum (Acute) premature rupture of membranes (PPROM) with unknown onset of labor (Acute) Advanced maternal age risk, currently (Acute) s/p LTCS PPD # 1 1. routine post care 2. breast feeding- support given 3. rh positive 4. rubella immune
[2020-11-29 07:45] VITALS: BP 117/54; PULSE 66; RESP 18; TEMP 36.5; O2SAT 98
[2020-11-29] MEDS: Senna/Docusate Sodium 1 Tablet PO (10:51)
[2020-11-29 13:00] VITALS: BP 115/50; PULSE 60; RESP 17; TEMP 36.5; O2SAT 97
[2020-11-29] MEDS: Enoxaparin 40 MG/0.4 ML Syringe SC (13:04)
[2020-11-29] MEDS: Naproxen 250 MG Tablet 500 MG PO ×2 (14:17→21:40)
[2020-11-29 17:03] VITALS: BP 116/56; PULSE 70; RESP 18; TEMP 36.9; O2SAT 97
[2020-11-29 19:38] VITALS: BP 124/61; PULSE 64; RESP 16; TEMP 36.9; O2SAT 98
[2020-11-30 01:15] VITALS: BP 139/46; PULSE 66; RESP 18; TEMP 36.8; O2SAT 99
[2020-11-30] MEDS: Acetaminophen 500 MG Tablet 1000 MG PO ×3 (05:37→17:25)
[2020-11-30] MEDS: Naproxen 250 MG Tablet 500 MG PO ×2 (05:37→13:40)
[2020-11-30 09:00] VITALS: BP 136/53; PULSE 72; RESP 16; TEMP 36.9; O2SAT 98
[2020-11-30] MEDS: Enoxaparin 40 MG/0.4 ML Syringe SC (10:53)
[2020-11-30] MEDS: Senna/Docusate Sodium 1 Tablet PO (10:55)
[2020-11-30 12:46] VITALS: BP 120/71; PULSE 72; RESP 20; TEMP 36.7; O2SAT 99
--- NOTE | 2020-11-30 12:46 | PN.OBGYN_ITS ---
Patient Problems: Active and Suspected Problems (Last Updated 11/30/20 @ 09:21 by Sarah Scott) Uterine fibroid (Acute) right fundal fibroid measuring 4.3 x 3.6 x 3.7 cm History of tetanus, diphtheria, and acellular pertussis booster vaccination (Tdap) (Acute) Subjective: Patient doing well without complaints. Tolerating PO. Ambulating and voiding without difficulty. Breast feeding well. Denies chest pain, shortness of breath, calf pain/swelling, fevers,B chills, lightheadedness. Objective: Laboratory Tests 11/29/20 11/28/20 11/28/20 Range/Units 05:20 10:50 10:50 WBC 10.5 7.9 (4.4-11.0) K/mm3 RBC 3.81 L 4.13 L (4.2-5.4) M/mm3 Hgb 12.7 13.5 (12.0-15.0) g/dL Hct 38.3 40.3 (37-47) % MCV 100.5 H 97.6 (81-99) fL MCH 33.3 H 32.7 H (27.0-32.0) pg MCHC 33.2 33.5 (32-36) g/dL RDW Std Deviation 51.3 H 48.2 H (35.1-43.9) fl RDW Coeff of Jennifer 13.8 13.5 (11.6-14.6) % Plt Count 222 255 (150-450) K/mm3 MPV 10.8 11.0 (6.2-12.0) fl Immature Gran % (Auto) 0.500 (0.0-0.9) % Neut % (Auto) 70.6 H (47-70) % Lymph % (Auto) 19.6 (19-41) % [place] % (Auto) 7.9 (0-10) % Eos % (Auto) 1.0 (0-5) % Baso % (Auto) 0.4 (0-1) % Absolute Neuts (auto) 5.6 (2.0-7.7) X10^3/uL Absolute Lymphs (auto) 1.56 (0.83-4.51) X10^3/uL Nucleated RBC % 0 (0-5) % Blood Type O POSITIVE Antibody Screen NEGATIVE - Physical Exam Vitals/I&O's: Vital Signs Temp Pulse Resp BP Pulse Ox 98.4 F 72 16 136/53 H 98 11/30/20 09:00 11/30/20 09:00 11/30/20 09:00 11/30/20 09:00 11/30/20 09:00 Oxygen Delivery Method Room Air Weight: 226 lb 3.108 oz Body Mass Index (BMI) 37.6 Intake and Output for Last 24 Hours 11/28/20 11/29/20 11/30/20 23:59 23:59 23:59 Intake Total 3013.33 / 3013.33 Output Total 400 / 400 400 / 400 Balance 2613.33 / 2613.33 -400 / -400 General: Alert, Oriented x3, Cooperative, No apparent distress, Well developed, Well nourished HEENT: Atraumatic, PERRLA, EOMI, Normocephalic Neck: Supple, No JVD Lungs: Normal air movement Cardiovascular: Regular rate Abdomen: Soft, Non Tender, Non-Distended, - - incision c/d/i, fundus firm Extremities: No edema, No Calf Tenderness Neurological: Cranial nerves II-XII grossly intact, Neuro grossly intact Psych/Mental Status: Normal Affect, Appropriate Microbiology Past 72 Hours 11/28/20 09:40 Mucosa - Nose SARS-CoV-2 Antigen (Rapid) - Final Current Medications Acetaminophen (Acetaminophen 500 Mg Tablet) 1,000 mg PO Q6H [facility] Last Admin: 11/30/20 11:08 Dose: 1,000 mg Documented by: Bisacodyl (Bisacodyl 10 Mg Suppository) 10 mg RC UD PRN PRN Reason: If no BM Enoxaparin Sodium (Enoxaparin 40 Mg/0.4 Ml Syringe) 40 mg SC DAILY [facility] Last Admin: 11/30/20 10:53 Dose: 40 mg Documented by: Famotidine (Famotidine 20 Mg Tablet) 20 mg PO DAILY [facility] Last Admin: 11/30/20 10:57 Dose: Not Given Documented by: Hydrocortisone (Hydrocortisone 2.5% Crm) 1 applic TOPICAL TID PRN PRN; Protocol PRN Reason: Discomfort Methylergonovine Maleate (Methylergonovine 0.2 Mg/Ml Ampul) 0.2 mg IM X1 PRN PRN Reason: Uterine Atony Naloxone HCl (Naloxone 0.4 Mg/Ml Syringe) 0.02 mg IV Q1M PRN PRN Reason: RR <10 and pt unresponsive Naproxen (Naproxen 250 Mg Tablet) 500 mg PO Q8 [facility] Last Admin: 11/30/20 05:37 Dose: 500 mg Documented by: Ondansetron HCl (Ondansetron 4 Mg/2 Ml Vial) 4 mg IV Q4H PRN PRN PRN Reason: Nausea Oxycodone HCl (Oxycodone 5 Mg Tablet) 5 - 10 mg PO Q4H PRN PRN PRN Reason: Pain Score 4-10 Prochlorperazine Edisylate (Prochlorperazine 10 Mg/2 Ml Vial) 10 mg IV Q6H PRN PRN PRN Reason: NAUSEA Senna/Docusate Sodium (Senna/Docusate Sodium 1 Tablet) 0 tablet PO DAILY [facility] Last Admin: 11/30/20 10:55 Dose: 1 tablet Documented by: Simethicone (Simethicone 80 Mg Tablet) 80 mg PO PCHS PRN PRN Reason: Indigestion/stomach pain Last Admin: 11/29/20 19:50 Dose: 80 mg Documented by: Sodium Chloride (0.9% Saline Lock 10 Ml Syringe) 5 - 15 ml IV UD PRN PRN Reason: SALINE FLUSH Last Admin: 11/29/20 07:54 Dose: 10 ml Documented by: Medical Necessity - Tobacco Use Smoking Status: Former smoker Assessment/Plan All Active Problems (Last Updated 11/30/20 @ 09:21 by Sarah Scott) Uterine fibroid (Acute) History of tetanus, diphtheria, and acellular pertussis booster vaccination (Tdap) (Acute) 37 weeks gestation of (Resolved) Advanced maternal age risk, currently (Resolved) COVID-19 virus detected (Resolved) H/O section (Resolved) Obesity affecting (Resolved) (Resolved) premature rupture of membranes (PPROM) with unknown onset of labor (Resolved) Supervision of high risk , antepartum (Resolved) s/p LTCS PPD # 2 1. routine post care 2. breast feeding- support given 3. rh positive 4. rubella immune
--- NOTE | 2020-11-30 12:46 | DCINST_ITS ---
Discharge Diet: No Restrictions Discharge Activity: May Not Drive - for 2 weeks or while taking narcotic pain meds., May Shower, May Take a Tub Bath - in 7 days. May resume sexual activity in: 4-6 weeks Lifting Restrictions: 20 pounds Additional Activity Instructions:: Nothing in the vagina for 4-6 weeks. You may return to work/school in 6 weeks. Call your doctor if your incision/area has: Continuous Slow Oozing, Sudden Increased Bleeding, Increased Pain/ Swelling, Increased Redness, Foul Smelling Discharge Call your doctor if you observe: Fever of 101 or Higher Suture Line Care: Avoid Pulling/Pushing, Avoid Pinching/Bending Additional Instructions: If you experience any of the following, contact your healthcare provider. * Bleeding that soaks a pad every hour for 2 hours * Fever 100.4 or higher * Unrelieved incision or abdominal pain * Swelling, redness, discharge or bleeding from your incision or episiotomy site * Your incision begins to separate * Problems urinating (including inability to urinate or burning while urinating). * Visual changes * Severe headache * Flu-like symptoms * Pain or redness in one of both of your breasts * Pain, warmth, tenderness or swelling in your legs, especially the calf area * Frequent nausea and vomiting * Symptoms of depression or anxiety If you experience any of the following, call 911 or go to the nearest Emergency Room. * Chest pain * Problems breathing * Seizure activity * Partial or complete paralysis of a body part, slurred speech, weakness or drooping of the face, or a sudden inability to walk or hold your balance Allergies/Adverse Reactions: Allergies No Known Allergies Allergy (Verified 11/24/20 15:44) Medications to take at Discharge prenat.vits,oscar,[id number]-bsptp 1 tab PO QDAY 12/23/17 breast pump See Rx Instructions .ROUTE .MEDSUPPLY #1 ea 11/21/20 Aspirin, Baby 81 mg PO 11/28/20 Famotidine 20 mg PO DAILY 11/28/20 Follow-Up: Call to make an appointment with your doctor for an incision check in 1-2 weeks. You will also need a 6 week post- follow up appointment. Test results from this visit will be discussed in further detail at your follow- up appointment, if applicable. Primary Care Physician: Sekou Holder DO [Primary Care Provider] -
[2020-11-30 14:45] VITALS: BP 120/71; PULSE 72; RESP 20; TEMP 36.7; O2SAT 99
--- NOTE | 2020-11-30 18:09 | NURSING ---
bands wouldnt scan but bands were verified by nurse and mother upon discharge
== END 2020-11-30 18:00 | disposition home or self-care (01) | DRG 785 ==
PROVIDERS: Obstetrics & Gynecology; Admitting Provider Obstetrics & Gynecology; PCP Preventive Medicine Occupational Medicine; Referring Provider Obstetrics & Gynecology; Visit Provider Obstetrics & Gynecology
PROC: 10D00Z1 Extraction of Products of Conception, Low, Open Approach (ICD-10-PCS; CPT 59514; principal; 2020-11-28 11:45)
DX: O99.214 Obesity complicating childbirth (principal); E66.9 Obesity, unspecified; O34.13 Maternal care for benign tumor of corpus uteri, third trimester; O09.523 Supervision of elderly multigravida, third trimester; O09.823 Supervision of pregnancy with history of in utero procedure during previous pregnancy, third trimester; Z98.891 History of uterine scar from previous surgery; Z3A.38 38 weeks gestation of pregnancy; Z37.0 Single live birth; Z68.38 Body mass index [BMI] 38.0-38.9, adult; Z86.16 Personal history of COVID-19
CPT/HCPCS: 85025; 85027; 86850; 86900; 86901; 87426; 88302; 99218; 99251; J7120; A4216; G0378; G0463; J2405

== ENCOUNTER → 2020-12-03 14:50 | Outpatient (CLI) | payer OTHER, SELFPAY ==
[2020-11-28 10:40] VITALS: BMI 37.6
== END ==
PROVIDERS: PCP Preventive Medicine Occupational Medicine; Referring Provider Obstetrics & Gynecology; Visit Provider Obstetrics & Gynecology
DX: Z39.1 Encounter for care and examination of lactating mother (principal)
CPT/HCPCS: 96158

== ENCOUNTER → 2020-12-12 | Outpatient (CLI) | payer OTHER, SELFPAY | END | disposition home or self-care (01) | LOC: LABSPEC 12:41 | PROVIDERS: PCP Preventive Medicine Occupational Medicine; Referring Provider Nurse Practitioner Women's Health; Visit Provider Nurse Practitioner Women's Health | DX: R30.9 Painful micturition, unspecified (principal) | CPT/HCPCS: 87086; 87088 ==

== ENCOUNTER 2020-12-31 17:11 | Inpatient (IN) | payer OTHER, SELFPAY ==
[2020-12-31] VITALS (12 sets, daily range): BP systolic 91–126; BP diastolic 41–82; PULSE 77–115; RESP 16–20; TEMP 36.8–38.4; O2SAT 94–99; BMI 33.3; BMI 35.9
--- NOTE | 2020-12-31 17:24 | EKG12_ITS ---
Test Reason : Blood Pressure : / mmHG Vent. Rate : 103 BPM Atrial Rate : 103 BPM P-R Int : 166 ms QRS Dur : 094 ms QT Int : 312 ms P-R-T Axes : 036 033 010 degrees QTc Int : 408 ms Sinus tachycardia Otherwise normal ECG Confirmed by BENTLEY SINGH, MARIAH ([id number]), editorial assistant JOSEPH ARRIAZA ([id number]) on 01/03/2021 9:02:26 AM Referred By: TATYANA Confirmed By:LISA HAGAN MD
[2020-12-31 17:42] LABS: Color, Urine Yellow (Yellow); Glucose, Dipstick Normal (Normal); Ketone-Dipstick 15 mg/dl (Negative); Leukocyte Esterase-Dipstick 500 /ul (Negative); Nitrite-Dipstick Negative (Negative); Occult Blood-Urine 250 /ul (Negative); Protein-Dipstick 30 mg/dl (Negative); Urine Bilirubin Dipstick Negative (Negative); Urine Clarity Clear (Clear); Urine Urobilinogen Normal (Normal)
[2020-12-31 17:47] LABS: Bacteria 0 SEEN /hpf (None Seen); Mucous, Urine 0 SEEN /hpf (<or=2+)
[2020-12-31 17:49] LABS: Red Blood Cells-Urine 0-5 SEEN /hpf (0-5); Squamous Epithelial Cells - UA 5-10 SEEN /hpf (5-10); White Blood Cells 0-5 SEEN /hpf (0-5)
[2020-12-31 18:00] LABS: Absolute Lymphocyte Count 0.72 X10^3/uL (0.83-4.51); Absolute Neutrophil Count 19.3 X10^3/uL (2.0-7.7); Basophil% 0.5 % (0-1); Eosinophil# 0.43 X10^3/uL; Hematocrit 46.9 % (37-47); Hemoglobin 15.8 g/dL (12.0-15.0); Lymphocyte # 0.72 X10^3/ul (0.83-4.51); Lymphocyte % 3.4 % (19-41); Mean Corp Hgb Conc 33.7 g/dL (32-36); Mean Corpuscular Hgb 32.8 pg (27.0-32.0); Mean Corpuscular Volume 97.3 fL (81-99); Mean Platelet Vol. 10.6 fl (6.2-12.0); Monocyte# 0.79 X10^3/uL; Monocyte% 3.7 % (0-10); NRBC Flagged by Analyzer 0 % (0-5); Neutrophil # 19.25 X10^3/uL (2.7-7.7); Neutrophil % 89.9 % (47-70); Platelet Count 227 K/mm3 (150-450); RBC Distribution Width CV 13.6 % (11.6-14.6); RBC Distribution Width SD 49.3 fl (35.1-43.9); Red Blood Count 4.82 M/mm3 (4.2-5.4); White Blood Count 21.4 K/mm3 (4.4-11.0)
--- NOTE | 2020-12-31 18:04 | RAD_ITS ---
STUDY: X-RAY CHEST REASON FOR EXAM: Female, 35 years old. Dyspnea TECHNIQUE: AP COMPARISON: None. FINDINGS: EKG leads project over the chest. The lungs are clear and expanded. There is no demonstrated pleural abnormality. Normal size heart. Normal mediastinum and heriberto. Normal visualized pulmonary arteries. There is atherosclerotic tortuosity of the aortic arch and descending thoracic aorta. Normal visualized thoracic spine. Normal visualized ribs, clavicles, and shoulders. There is no demonstrated abnormality of the visualized soft tissue structures of the upper abdomen. RAD/Chest 1 View (Portable) IMPRESSION: Nonacute portable x-ray examination of the chest. Electronically Signed: Francisco Naranjo MD ([place]) at 18:19 EDT , Service support ,
--- NOTE | 2020-12-31 18:04 | ED.DCSUM_ITS ---
History of Present Illness Chief Complaint: General Illness Informant: Patient Onset: Yesterday Context: Sudden Onset Timing: Continuous Quality: Myalgias, cough, shortness of breath and fever Location: Generalized and respiratory Current Severity: Mild Maximum Severity: Moderate Worsened by: Dyspnea on exertion Relieved by: Nothing Associated Symptoms: Headache and neck pain without stiffness or photophobia Narrative: Presents with fever of 102.0 ?F, headache, neck pain, myalgias, arthralgias, dyspnea. She was started on antibiotics 2 weeks ago for urinary tract infection. She has not completed her course of antibiotics because she has not been compliant. She denies dysuria, frequency, urgency or hematuria. She denies back or flank pain. She denies photophobia. She denies ear pain or ear drainage. She denies sore throat. She may have a slight cough. She denies abdominal pain. She denies rash. She does report aches in her arms and legs. She denies ill contact. She delivered less than a month ago. Prior similar symptoms: No Recent Illness/Hospitalization: Yes - Delivery - Past Medical History (1) No significant past medical history Status: Acute Past Medical History - Allergies and Home Meds Allergies/Adverse Reactions: Allergies No Known Allergies Allergy (Verified 12/31/20 17:11) Primary Care Physician: Sekou Holder DO [Primary Care Provider] - Prior records reviewed: Yes Surgical History: noncontributory Lives: Spouse/ Significant Other, With Family Smoking Status: Never smoker Alcohol: Rare Drugs: None Review of Systems General: Reports: Chills, Fever, Malaise. Denies: Subjective, Sweats, Weight loss Eyes: Reports: -. Denies: Visual changes - bilaterally, Blurred Vision - bilaterally, Diplopia ENT: Reports: - - Denies congestion and postnasal drainage as well. She did report posterior neck pain.. Denies: Bilateral ear pain, Rhinorrhea, Sore throat Cardiovascular: Reports: Chest pain, Palpitations. Denies: Heart racing Respiratory: Reports: Dyspnea, Dyspnea on exertion. Denies: Sputum, Orthopnea, Paroxysmal nocturnal dyspnea Gastrointestinal: Reports: Nausea. Denies: Abdominal pain, Vomiting, Diarrhea, Melena, Hematochezia Genitourinary: Denies: Dysuria, Hematuria, Frequency Musculoskeletal: Reports: Myalgias, Arthralgias. Denies: Neck pain, Back pain, Swelling, Extremity Pain Skin: Denies: Rash, Wounds Neurological: Reports: Headache, Weakness. Denies: Parasthesia, Numbness Endocrine: Denies: Polyuria, Polydipsia Hematologic: Denies: Easy bruising, Easy bleeding Allergy: Denies: Uticaria Physical Exam Vital Signs/Narrative: Vital Signs Temp Pulse Resp BP Pulse Ox 12/31/20 17:12 98.4 F 115 H 20 H 126/81 H 98 Inital Vital Signs reviewed: Yes General: Well nourished, Well developed, Obese, - - Patient appears ill and appears tachypneic. Head: Normocephalic, Atraumatic Eyes: Perrl, EOMI. Negative for: Pale conjunctiva, Scleral icterus ENT: No rhinorrhea, TM's clear, Dry mucous membranes Neck: Supple, Nontender, No lymphadenopathy, No JVD Cardiovascular: Regular rhythm, No murmurs, Normal S1, Normal S2, Tachycardia Respiratory: CTA bilaterally, Chest nontender, Decreased Air Movement. Negative for: No distress Abdomen: Soft, Nontender, Nondistended, Normal bowel sounds, No masses Rectal: Deferred Back: Nontender, Normal Inspection. Negative for: CVA tenderness Extremities: No edema, Tenderness. Negative for: Calf Tenderness Skin: No rash, No Trauma, Pallor. Negative for: Cyanosis, Diaphoresis, Jaundice Neurological: Alert, Oriented x3, Cranial nerves II-XII grossly intact, Normal Strength, Normal Sensation Psychological: Depressed Diagnostic/Tx/Re-eval Chest X-Ray - ED: 1 View, Read by ED Physician - View chest x-ray was interpreted by me at 09/23/2006. Cardiac silhouette and size normal. Mediastinum normal. Lung parenchyma normal. No effusion noted. Osseous structures are unremarkable Impressions Chest X-Ray 12/31/20 18:04 IMPRESSION: Nonacute portable x-ray examination of the chest. Electronically Signed: Francisco Naranjo MD (Brooks) at 18:19 EDT , Service support , Chest CTA 12/31/20 18:26 IMPRESSION: 1. No central or segmental pulmonary embolism. 2. No airspace consolidation/pneumonia. 3. Mild splenomegaly. Electronically Signed: Francisco Naranjo MD (Brooks) at 18:51 EDT , Service support , 12/31/20 18:04 Chest 1 View (Portable) [RAD] Stat 12/31/20 18:26 CTA Chest W/WO Contrast [CT] Stat 12/31/20 17:30 Nasal Secretion SARS-CoV-2 Antigen (Rapid) - Final Laboratory Results 12/31/20 12/31/20 12/31/20 17:30 17:50 17:50 WBC 21.4 H RBC 4.82 Hgb 15.8 H Hct 46.9 MCV 97.3 MCH 32.8 H MCHC 33.7 RDW Std Deviation 49.3 H RDW Coeff of Jennifer 13.6 Plt Count 227 MPV 10.6 Immature Gran % (Auto) 0.500 Neut % (Auto) 89.9 H Lymph % (Auto) 3.4 L [place] % (Auto) 3.7 Eos % (Auto) 2.0 Baso % (Auto) 0.5 Absolute Neuts (auto) 19.3 H Absolute Lymphs (auto) 0.72 L Nucleated RBC % 0 D-Dimer Quant (PE/DVT) 0.82 H* Sodium Potassium Chloride Carbon Dioxide Anion Gap BUN Creatinine Estim Creat Clear Calc Est GFR (MDRD) Af Amer Est GFR (MDRD) Non-Af BUN/Creatinine Ratio Glucose Lactic Acid Calcium Urine Color Yellow Urine Clarity Clear Urine pH 8.0 Ur Specific [place] 1.010 Urine Protein 30 H Urine Glucose (UA) Normal Urine Ketones 15 H Urine Occult Blood 250 H Urine Nitrite Negative Urine Bilirubin Negative Urine Urobilinogen Normal Ur Leukocyte Esterase 500 H Urine RBC 0-5 SEEN Urine WBC 0-5 SEEN Ur Squamous Epith Cells 5-10 SEEN Urine Bacteria 0 SEEN Urine Mucus 0 SEEN 12/31/20 12/31/20 17:50 17:50 WBC RBC Hgb Hct MCV MCH MCHC RDW Std Deviation RDW Coeff of Jennifer Plt Count MPV Immature Gran % (Auto) Neut % (Auto) Lymph % (Auto) [place] % (Auto) Eos % (Auto) Baso % (Auto) Absolute Neuts (auto) Absolute Lymphs (auto) Nucleated RBC % D-Dimer Quant (PE/DVT) Sodium 136 Potassium 3.5 Chloride 105 Carbon Dioxide 24.0 Anion Gap 7 BUN 10 Creatinine 1.15 H Estim Creat Clear Calc 60.27 Est GFR (MDRD) Af Amer 68 Est GFR (MDRD) Non-Af 56 L BUN/Creatinine Ratio 8.7 L Glucose 113 H Lactic Acid 2.6 H* Calcium 8.7 Urine Color Urine Clarity Urine pH Ur Specific [place] Urine Protein Urine Glucose (UA) Urine Ketones Urine Occult Blood Urine Nitrite Urine Bilirubin Urine Urobilinogen Ur Leukocyte Esterase Urine RBC Urine WBC Ur Squamous Epith Cells Urine Bacteria Urine Mucus They reveals no pulmonary abnormality and no evidence of pulmonary embolus. Lactate is elevated. She was reassessed at 1921. Since there is no obvious source with meeting planner breast exam was performed which was unremarkable. Patient states she no longer has vaginal bleeding or discharge. She states she stopped within the last 24 hours. There is no odor or discoloration noted. Patient has no abdominal pain either. Urine is no longer infected even though she has not been compliant with her antibiotics. She does appear ill. She is flushed, tachycardic, tachypneic and febrile. Will treat with antibiotics for unknown source. Spoke with OB. They recommended a CT of the pelvis and she had a rule out abscess. - Rhythm Strip Rhythm Strip: Sinus Tach Rate: 107 Ectopy: None - EKG Initial EKG Interpretation: Sinus Tachycardia - This tachycardia with a ventricular rate of 103. EKG is otherwise normal. CT interval is 106 6 ms. Cures duration 94 ms. QT duration 312 ms. [place] is normal. - Medical Decision Making Patient resents with symptoms suggestive of infectious symptoms also need to rule out pulmonary embolus. She may have urinary tract infection due to noncompliance. With her dyspnea need to rule out pulmonary etiology i.e. a pneumonia versus pulmonary embolus. Urine was obtained to rule out urinary tract effects that she has been noncompliant. Appropriate blood work was obtained. Since her D-dimer is elevated and chest x-ray is unremarkable CTA of the chest was ordered to rule out PE since she is approximate 1 month . Since patient does have a white count greater than 25,000 with elevated lactate and is tachycardic febrile and tachypneic this may represent sepsis. Blood cultures were ordered. Source is not obvious at this point. Will await CTA which may reveal a pneumonia. Furthermore, patient may have Covid and awaiting results. - Critical Care Time Critical care time (excluding procedures): 30-74 minutes - Total time 33 minutes which includes obtaining history and physical, documentation, review of prior records, discussion with representative government relations and hospitalist. Plan is to admit to representative government relations if there is an abscess with consult to medicine. If there is no pelvic abscess admit to medicine with a consul, Discussing w/Patient &/or Family/Solution Architect, Discussing w/Consultants - Was discussed with her representative government relations. Since there is no obvious source and she had a she is requesting a CT of the pelvis with IV contrast to rule out abscess., Arranging Admission or Transfer ED Disposition - Plan for ED Patient: Disposition: Acute Care Hospital [facility] Diagnosis: SIRS (systemic inflammatory response syndrome), Lactic acidosis, Sinus tachycardia seen on library monitor Referrals: Sekou Holder DO [Primary Care Provider] -
[2020-12-31 18:16] LABS: Anion Gap 7 (5-15); BUN 10 mg/dL (7-18); BUN/Creat Ratio 8.7 RATIO (10-20); Calcium,Total 8.7 mg/dL (8.5-10.1); Chloride 105 mmol/L (98-107); Creatinine, Serum 1.15 mg/dL (0.55-1.02); EST Glomerular Filtration Rate 56 mL/min (>60); Est Glom Filt Rate - Afr Amer 68 mL/min (>60); Estimated Creatinine Clearance 60.27 ml/min; Glucose 113 mg/dL (74-106); Potassium 3.5 mmol/L (3.5-5.1); Sodium Level 136 mmol/L (136-145)
[2020-12-31 18:19] LABS: D-Dimer Quantitative (DVT/PE) 0.82 FEU/ug/m (0.27-0.49)
[2020-12-31] MEDS: Acetaminophen 325 MG Tablet 650 MG PO (18:26)
--- NOTE | 2020-12-31 18:26 | CT_ITS ---
STUDY: CTA CHEST REASON FOR EXAM: Female, 35 years old. , fever, nasal congestion, leukocytosis, elevated d-dimer RADIATION DOSAGE (If Supplied By Facility): CTDIvol = ( 11.47 ) mGy, DLP = ( 347.63 ) mGycm TECHNIQUE: The examination was performed with the intravenous administration of IV 100mL Isovue-370. Post-processing of the angiographic images was performed, with multiplanar reformation and 3D reconstruction. Individualized dose optimization techniques were used for this CT. COMPARISON: None. FINDINGS: Normal enhancement of the main pulmonary artery and right and left pulmonary arteries. Normal enhancement of the bilateral peripheral pulmonary arteries. There is no demonstrated pulmonary embolism. Normal thoracic aorta and visualized great vessels. There is no demonstrated aortic dissection. Normal heart and pericardium. Normal mediastinum. Normal hilar regions. Normal visualized trachea and bronchi. The lungs are well expanded. Normal pulmonary parenchyma. Normal pleura. Normal chest wall structures. Normal osseous structures. There is mild splenomegaly. CT/CTA Chest W/WO Contrast IMPRESSION: 1. No central or segmental pulmonary embolism. 2. No airspace consolidation/pneumonia. 3. Mild splenomegaly. Electronically Signed: Francisco Naranjo MD ([place]) at 18:51 EDT , Service support ,
[2020-12-31 18:27] LABS: Lactic Acid 2.6 mmol/L (0.4-1.9)
--- NOTE | 2020-12-31 18:32 | ED.RN ---
MD and nurse notified of Lactic level of 2.6.
--- NOTE | 2020-12-31 19:29 | CT_ITS ---
STUDY: CT PELVIS WITH CONTRAST REASON FOR EXAM: Female, 35 years old. SIRS status post rule out abscess RADIATION DOSAGE (If Supplied By Facility): CTDIvol = ( 11.47 ) mGy, DLP = ( 347.63 ) mGycm TECHNIQUE: Transaxial imaging of the pelvis was performed without oral contrast. IV 75mL Isovue-370 was administered intravenously. Individualized dose optimization techniques were used for this CT. COMPARISON: None. FINDINGS: Normal urinary bladder. Normal size uterus with heterogeneous endometrial echoes consistent with recent . No free fluid. No evidence for abscess. Normal visualized small intestine. Normal visualized colon. There is no pelvic fluid. There is no pelvic lymphadenopathy or mass lesion. Normal visualized pelvic arteries. Normal abdominal wall. Normal osseous structures. CT/Pelvis WITH IV Contrast IMPRESSION: No definite acute or significant abnormality seen. Electronically Signed: Byron Cage MD at 20:23 EDT , Service support ,
--- NOTE | 2020-12-31 20:30 | ED.RN ---
OB CONSULTED FOR ADVICE WITH BREAST MILK STORAGE, PUMPING, MILK SAFETY WITH MEDS. PUMP AT BEDSIDE
--- NOTE | 2020-12-31 21:41 | HP.PCM_ITS ---
Problem List (1) No significant past medical history Status: Chronic (2) SIRS (systemic inflammatory response syndrome) Status: Acute (3) Lactic acidosis Status: Acute (4) Sinus tachycardia seen on environmental monitoring technician Status: Acute (5) Uterine fibroid Status: Chronic Comment: right fundal fibroid measuring 4.3 x 3.6 x 3.7 cm (6) History of tetanus, diphtheria, and acellular pertussis booster vaccination (Tdap) Status: Acute History of Present Illness Date of Admission: 12/31/20 Chief Complaint: flulike sypmtoms The patient is a 35 year old F female who is 1 month presenting with flulike symptoms. Her symptoms started a day before presentation. She described her flulike symptoms as a fever with temperature of 101.8 Fahrenheit at home. Further, she had chills; occipital headache; diaphoresis; body aches and malaise. She reported that her face looked flushed. Because of the persistence of her symptoms she came to the emergency department. At emergency department because of recent OBGYN was consulted. CARD TAPE CONVERTER OPERATOR recommended pelvis CT which was unrevealing. Reportedly patient was diagnosed outpatient with UTI but was noncompliant with her outpatient prescribed antibiotics. Past Medical History Past Medical History (Chronic Problems): Chronic Problems (Last Reviewed 01/01/21 @ 02:[address] Gilbert Stratton MD) No significant past medical history (Chronic) Uterine fibroid (Chronic) right fundal fibroid measuring 4.3 x 3.6 x 3.7 cm Medical History: Medical History (Last Reviewed 01/01/21 @ 02:[address] Gilbert Stratton MD) Obesity affecting (Resolved) O99.210 Recommended early 1h GTT- NL premature rupture of membranes (PPROM) with unknown onset of labor (R esolved) O42.919 delivery at 32 weeks; progesterone injections starting at 16 weeks, CL screening q2w starting at 16w, US normal, 08/27 CL normal Allergies No Known Allergies Allergy (Verified 12/31/20 17:11) Home Medications: Ambulatory Orders Medication Instructions Recorded Clotrimazole [Lotrimin] 1 applicatio TOPICAL BID 12/31/20 Nitrofurantoin Macrocrystals 100 mg PO Q12 12/31/20 [Macrobid] Surgical History: Surgical History (Last Reviewed 12/12/20 @ 11:25 by Dasha Saldivar) H/O section (Resolved) Z98.891 For PPROM with PTL and Breech presentation. Plans RCS 11/28 @ 12 S/P tonsillectomy Z90.89 palatal expansion Lives: Spouse/ Significant Other, With Family Smoking Status: Former smoker Alcohol: Rare Drugs: None - *Family History Maternal Family History: Family History (Last Reviewed 01/01/21 @ 02:[address] Gilbert Stratton MD) Mother Hypertension Aunt Breast cancer Grandfather Lung cancer Review of Systems Constitutional: Reports: Chills, Fever, Malaise. Denies: Weight Change HEENT: Reports: Head Aches. Denies: Sinus Congestion, Sinus Drainage Cardiovascular: Denies: Chest Pain, Palpitations Respiratory: Denies: Cough, Shortness of breath at rest, Sputum production Gastrointestinal: Denies: Abdominal Pain, Nausea, Vomiting Genitourinary: Denies: Dysuria Musculoskeletal: Denies: Joint Pain, Joint Tenderness Skin: Denies: Rash, Wounds Neurological: Denies: Numbness, Tingling, Focal weakness Psychiatric: Denies: Anxiety, Depression, Homicidal Ideations, Suicidal Ideations Hematologic/ Lymphatic: Denies: Easy Bruising, Easy Bleeding VTE Information - Inpt Only VTE Present on Admission: No VTE Mechan Device Prophylaxis: None VTE Pharm Prophylaxis ordered?: Yes Patient Problems: Active and Suspected Problems (Last Reviewed 01/01/21 @ 02:[address] Gilbert Stratton MD) SIRS (systemic inflammatory response syndrome) (Acute) Lactic acidosis (Acute) Sinus tachycardia seen on environmental monitoring technician (Acute) History of tetanus, diphtheria, and acellular pertussis booster vaccination (Tdap) (Acute) - Physical Exam Vitals/I&O's: Vital Signs Temp Pulse Resp BP Pulse Ox 98.2 F 89 18 104/79 98 12/31/20 21:00 12/31/20 21:00 12/31/20 21:00 12/31/20 21:00 12/31/20 21:00 Oxygen Delivery Method Room Air Weight: 90.718 kg Body Mass Index (BMI) 33.3 Intake and Output for Last 24 Hours 12/29/20 12/30/20 12/31/20 23:59 23:59 23:59 Intake Total 600 / 600 Balance 600 / 600 General: Alert, Oriented x3, Cooperative HEENT: Atraumatic, PERRLA, EOMI, Normocephalic Neck: Supple, No JVD, Negative Carotid Bruits Lungs: Clear to auscultation, Normal air movement Cardiovascular: Regular rate, Normal S1, Normal S2, No murmurs Abdomen: Bowel Sounds Present, Soft, Non Tender Extremities: No edema, Capillary Refill Less than 3 Seconds Skin: No rashes, No breakdown, - - Mild petechial rash on bilateral cheeks. Musculoskeletal: No Tenderness to Palpation of Joints or Extremities Neurological: Cranial nerves II-XII grossly intact Psych/Mental Status: Normal Affect, Appropriate Microbiology Past 72 Hours 12/31/20 17:30 Nasal Secretion SARS-CoV-2 Antigen (Rapid) - Final Laboratory Results 12/31/20 17:30: Urine Color Yellow, Urine Clarity Clear, Urine pH 8.0, Ur Specific [place] 1.010, Urine Protein 30 H, Urine Glucose (UA) Normal, Urine Ketones 15 H, Urine Occult Blood 250 H, Urine Nitrite Negative, Urine Bilirubin Negative, Urine Urobilinogen Normal, Ur Leukocyte Esterase 500 H, Urine RBC 0-5 SEEN, Urine WBC 0-5 SEEN, Ur Squamous Epith Cells 5-10 SEEN, Urine Bacteria 0 SEEN, Urine Mucus 0 SEEN 12/31/20 17:50: WBC 21.4 H, RBC 4.82, Hgb 15.8 H, Hct 46.9, MCV 97.3, MCH 32.8 H , MCHC 33.7, RDW Std Deviation 49.3 H, RDW Coeff of Jennifer 13.6, Plt Count 227, MPV 10.6, Immature Gran % (Auto) 0.500, Neut % (Auto) 89.9 H, Lymph % (Auto) 3.4 L, [place] % (Auto) 3.7, Eos % (Auto) 2.0, Baso % (Auto) 0.5, Absolute Neuts (auto) 19.3 H, Absolute Lymphs (auto) 0.72 L, Nucleated RBC % 0 12/31/20 17:50: D-Dimer Quant (PE/DVT) 0.82 H* 12/31/20 17:50: Sodium 136, Potassium 3.5, Chloride 105, Carbon Dioxide 24.0, Anion Gap 7, BUN 10, Creatinine 1.15 H, Estim Creat Clear Calc 60.27, Est GFR (MDRD) Af Amer 68, Est GFR (MDRD) Non-Af 56 L, BUN/Creatinine Ratio 8.7 L, Glucose 113 H, Calcium 8.7 12/31/20 17:50: Lactic Acid 2.6 H* Current Medications Vancomycin HCl 2,000 mg/ (Sodium Chloride) 540 mls @ 250 mls/hr IV X1 ONE Stop: 12/31/20 21:44 Last Admin: 12/31/20 20:37 Dose: 250 mls/hr Documented by: Assessment/Plan All Active Problems (Last Reviewed 01/01/21 @ 02:[address] Gilbert Stratton MD) SIRS (systemic inflammatory response syndrome) (Acute) Lactic acidosis (Acute) Sinus tachycardia seen on environmental monitoring technician (Acute) History of tetanus, diphtheria, and acellular pertussis booster vaccination (Tdap) (Acute) 37 weeks gestation of (Resolved) Advanced maternal age risk, currently (Resolved) COVID-19 virus detected (Resolved) H/O section (Resolved) Obesity affecting (Resolved) (Resolved) premature rupture of membranes (PPROM) with unknown onset of labor (Resolved) Supervision of high risk , antepartum (Resolved) The patient is a 35 year old F female who is 1 month presenting with flulike symptoms Acute febrile illness/SIRS Temperature 101.8 ?F at home and T-max of 100.9 Fahrenheit at the hospital. Heart rate of more than 90. White count of 21.4 With neutrophilic predominance and with lymphopenia. D-dimer was elevated but CTPA was negative. Rapid Covid was negative. Chest x-ray and CTPA does not look like Covid. Covid PCR was ordered. However from review of old records patient tested positive for COVID-19 virus on 07/28/2020. Comprehensive respiratory pathogen panel test ordered. Started on vancomycin and Zosyn at the emergency department and continued. Blood culture ordered emergency department; follow. Urine culture ordered. With elevated lactic acid (2.6); trend. Tylenol prn We will admit to intensive care unit and will consult acid retort operator. Per discussion with ED doctor patient's assistant golf professional will be consulted. Acute UTI. Urinalysis at the emergency department was reviewed. Urinalysis was abnormal. Was recently on antibiotics and the patient was noncompliant. Zosyn ordered as above Urine culture ordered. Elevated creatinine without diagnosis of KAMILA Mildly elevated creatinine. No previous creatinine to compare with. IV fluids as above Trend BMP. DVT Prophylaxis Subcutaneous Lovenox. Inpatient E&M: [id number] Init Hosp L3
[2020-12-31 21:56] LABS: Reflex Lactate? Y
--- NOTE | 2020-12-31 23:30 | PCM.RX.CS ---
Consult Pharmacy has been consulted to manage selected antiobiotic: Vancomycin Type of Consult: New start Suspected Infection: Other Prior Doses of Antibiotics Received/Current Regimen: Medications Vancomycin HCl 1,250 mg/ (Sodium Chloride) 275 mls @ 167 mls/hr IV Q12H JORGE A Discontinued Medications Vancomycin HCl 2,000 mg/ (Sodium Chloride) 540 mls @ 250 mls/hr IV X1 ONE Stop: 12/31/20 21:44 Last Admin: 12/31/20 22:47 Dose: Infused Labs: Sodium 136 mmol/L (136-145) 12/31/20 17:50 Potassium 3.5 mmol/L (3.5-5.1) 12/31/20 17:50 Chloride 105 mmol/L (98-107) 12/31/20 17:50 Carbon Dioxide 24.0 mmol/L (21.0-32.0) 12/31/20 17:50 Anion Gap 7 (5-15) 12/31/20 17:50 BUN 10 mg/dL (7-18) 12/31/20 17:50 Creatinine 1.15 mg/dL (0.55-1.02) H 12/31/20 17:50 Est GFR (MDRD) Af Amer 68 mL/min (>60) 12/31/20 17:50 Est GFR (MDRD) Non-Af 56 mL/min (>60) L 12/31/20 17:50 BUN/Creatinine Ratio 8.7 RATIO (10-20) L 12/31/20 17:50 Glucose 113 mg/dL (74-106) H 12/31/20 17:50 Microbiology: Microbiology 12/31/20 17:30 Nasal Secretion SARS-CoV-2 Antigen (Rapid) - Final Weight used for dosin.9 kg Estimated Creatinine Clearance: 60 Goal Trough: 15-20 mcg/mL Pharmacy Plan for Drug Dosing: Pharmacy Service will continue to monitor and adjust dosing as required. Follow-Up Labs: Trough Vancomycin Labs to be done on [date and time ordered]: 01/03/20 @0800
--- NOTE | 2020-12-31 23:38 | CON.PCM_ITS ---
Reason for Consult Date of Consultation: 12/31/20 Reason for Consultation: Sepsis in period History of Present Illness: The patient is a 35 year old F G2, P2 status post repeat on 11/28 presenting with fevers. Patient reports that she has been febrile at home up to 102 ?F. Reports that on arrival she was also experiencing shortness of breath, fatigue, weakness, nausea, arthralgias, and headaches. Denies breast pain or tenderness. She is no longer having any vaginal bleeding. Denies vaginal discharge. Denies uterine/suprapubic pain or tenderness. Denies pain or burning with urination. Denies flank pain. Past Medical History Medical History: Medical History (Last Reviewed 12/12/20 @ 11:25 by Dasha Saldivar) Obesity affecting (Resolved) O99.210 Recommended early 1h GTT- NL premature rupture of membranes (PPROM) with unknown onset of labor (Resolved) O42.919 delivery at 32 weeks; progesterone injections starting at 16 weeks, CL screening q2w starting at 16w, US normal, 08/27 CL normal Allergies No Known Allergies Allergy (Verified 12/31/20 17:11) Home Medications: Ambulatory Orders Medication Instructions Recorded Clotrimazole [Lotrimin] 1 applicatio TOPICAL BID 12/31/20 Nitrofurantoin Macrocrystals 100 mg PO Q12 12/31/20 [Macrobid] Surgical History: Surgical History (Last Reviewed 12/12/20 @ 11:25 by Dasha Saldivar) H/O section (Resolved) Z98.891 For PPROM with PTL and Breech presentation. Plans [facility] 11/28 @ 12 S/P tonsillectomy Z90.89 palatal expansion Surgical History: noncontributory Lives: Spouse/ Significant Other, With Family Smoking Status: Never smoker Alcohol: Rare Drugs: None Review of Systems Constitutional: Reports: Chills, Fever, Malaise, Weakness, Fatigue Eyes: Denies: Blurred vision HEENT: Reports: Head Aches Cardiovascular: Reports: Light Headedness. Denies: Chest Pain, Chest Tightness, Edema Respiratory: Reports: Shortness of Breath. Denies: Cough Gastrointestinal: Denies: Abdominal Pain, Constipation, Nausea, Vomiting Genitourinary: Denies: Dysuria, Frequency, Hematuria, Hesitancy Gynecological: Denies: Breast symptoms, Vaginal bleeding, Vaginal discharge, Vaginal itching Musculoskeletal: Reports: Joint stiffness, Muscle pain, Neck Pain Neurological: Reports: Headaches. Denies: Blurred vision Patient Problems: Active and Suspected Problems (Last Reviewed 12/12/20 @ 11:25 by Dasha Saldivar) No significant past medical history (Acute) SIRS (systemic inflammatory response syndrome) (Acute) Lactic acidosis (Acute) Sinus tachycardia seen on vamp stitcher (Acute) Subjective: Laboratory Tests 12/31/20 12/31/20 12/31/20 Range/Units 17:50 17:50 17:50 WBC (4.4-11.0) K/mm3 RBC (4.2-5.4) M/mm3 Hgb (12.0-15.0) g/dL Hct (37-47) % MCV (81-99) fL MCH (27.0-32.0) pg MCHC (32-36) g/dL RDW Std Deviation (35.1-43.9) fl RDW Coeff of Jennifer (11.6-14.6) % Plt Count (150-450) K/mm3 MPV (6.2-12.0) fl Immature Gran % (Auto) (0.0-0.9) % Neut % (Auto) (47-70) % Lymph % (Auto) (19-41) % [place] % (Auto) (0-10) % Eos % (Auto) (0-5) % Baso % (Auto) (0-1) % Absolute Neuts (auto) (2.0-7.7) X10^3/uL Absolute Lymphs (auto) (0.83-4.51) X10^3/uL Nucleated RBC % (0-5) % D-Dimer Quant (PE/DVT) 0.82 H* (0.27-0.49) FEU/ug/m Sodium 136 (136-145) mmol/L Potassium 3.5 (3.5-5.1) mmol/L Chloride 105 (98-107) mmol/L Carbon Dioxide 24.0 (21.0-32.0) mmol/L Anion Gap 7 (5-15) BUN 10 (7-18) mg/dL Creatinine 1.15 H (0.55-1.02) mg/dL Estim Creat Clear Calc 60.27 ml/min Est GFR (MDRD) Af Amer 68 (>60) mL/min Est GFR (MDRD) Non-Af 56 L (>60) mL/min BUN/Creatinine Ratio 8.7 L (10-20) RATIO Glucose 113 H (74-106) mg/dL Lactic Acid 2.6 H* (0.4-1.9) mmol/L Calcium 8.7 (8.5-10.1) mg/dL Urine Color (Yellow) Urine Clarity (Clear) Urine pH (5.0 - 8.0) Ur Specific [place] (1.002-1.030) Urine Protein (Negative) mg/dl Urine Glucose (UA) (Normal) mg/dl Urine Ketones (Negative) mg/dl Urine Occult Blood (Negative) /ul Urine Nitrite (Negative) Urine Bilirubin (Negative) mg/dL Urine Urobilinogen (Normal) mg/dl Ur Leukocyte Esterase (Negative) /ul Urine RBC (0-5) /hpf Urine WBC (0-5) /hpf Ur Squamous Epith Cells (5-10) /hpf Urine Bacteria (None Seen) /hpf Urine Mucus (<or=2+) /hpf 12/31/20 12/31/20 Range/Units 17:50 17:30 WBC 21.4 H (4.4-11.0) K/mm3 RBC 4.82 (4.2-5.4) M/mm3 Hgb 15.8 H (12.0-15.0) g/dL Hct 46.9 (37-47) % MCV 97.3 (81-99) fL MCH 32.8 H (27.0-32.0) pg MCHC 33.7 (32-36) g/dL RDW Std Deviation 49.3 H (35.1-43.9) fl RDW Coeff of Jennifer 13.6 (11.6-14.6) % Plt Count 227 (150-450) K/mm3 MPV 10.6 (6.2-12.0) fl Immature Gran % (Auto) 0.500 (0.0-0.9) % Neut % (Auto) 89.9 H (47-70) % Lymph % (Auto) 3.4 L (19-41) % [place] % (Auto) 3.7 (0-10) % Eos % (Auto) 2.0 (0-5) % Baso % (Auto) 0.5 (0-1) % Absolute Neuts (auto) 19.3 H (2.0-7.7) X10^3/uL Absolute Lymphs (auto) 0.72 L (0.83-4.51) X10^3/uL Nucleated RBC % 0 (0-5) % D-Dimer Quant (PE/DVT) (0.27-0.49) FEU/ug/m Sodium (136-145) mmol/L Potassium (3.5-5.1) mmol/L Chloride (98-107) mmol/L Carbon Dioxide (21.0-32.0) mmol/L Anion Gap (5-15) BUN (7-18) mg/dL Creatinine (0.55-1.02) mg/dL Estim Creat Clear Calc ml/min Est GFR (MDRD) Af Amer (>60) mL/min Est GFR (MDRD) Non-Af (>60) mL/min BUN/Creatinine Ratio (10-20) RATIO Glucose (74-106) mg/dL Lactic Acid (0.4-1.9) mmol/L Calcium (8.5-10.1) mg/dL Urine Color Yellow (Yellow) Urine Clarity Clear (Clear) Urine pH 8.0 (5.0 - 8.0) Ur Specific [place] 1.010 (1.002-1.030) Urine Protein 30 H (Negative) mg/dl Urine Glucose (UA) Normal (Normal) mg/dl Urine Ketones 15 H (Negative) mg/dl Urine Occult Blood 250 H (Negative) /ul Urine Nitrite Negative (Negative) Urine Bilirubin Negative (Negative) mg/dL Urine Urobilinogen Normal (Normal) mg/dl Ur Leukocyte Esterase 500 H (Negative) /ul Urine RBC 0-5 SEEN (0-5) /hpf Urine WBC 0-5 SEEN (0-5) /hpf Ur Squamous Epith Cells 5-10 SEEN (5-10) /hpf Urine Bacteria 0 SEEN (None Seen) /hpf Urine Mucus 0 SEEN (<or=2+) /hpf Clinical Impression(s) from Imaging Studies Chest X-Ray 12/31/20 18:04 IMPRESSION: Nonacute portable x-ray examination of the chest. Electronically Signed: Francisco Naranjo MD ([facility]) at 18:19 EDT , Service support , Chest CTA 12/31/20 18:26 IMPRESSION: 1. No central or segmental pulmonary embolism. 2. No airspace consolidation/pneumonia. 3. Mild splenomegaly. Electronically Signed: Francisco Naranjo MD ([facility]) at 18:51 EDT , Service support , Pelvis CT 12/31/20 19:29 IMPRESSION: No definite acute or significant abnormality seen. Electronically Signed: Byron Cage MD at 20:23 EDT , Service support , - Physical Exam Vitals/I&O's: Vital Signs Temp Pulse Resp BP Pulse Ox 100.9 F H 80 16 103/51 L 97 12/31/20 22:02 12/31/20 22:48 12/31/20 22:48 12/31/20 22:02 12/31/20 22:48 Oxygen Delivery Method Room Air Weight: 215 lb 13.321 oz Body Mass Index (BMI) 35.9 Intake and Output for Last 24 Hours 12/29/20 12/30/20 12/31/20 23:59 23:59 23:59 Intake Total 1140 / 1140 Balance 1140 / 1140 General: Alert, Oriented x3, Cooperative, No apparent distress, Well developed, Well nourished HEENT: Atraumatic, PERRLA, EOMI, Normocephalic Neck: Supple, No JVD Lungs: Clear to auscultation, Normal air movement Cardiovascular: Regular rate, Regular Rhythm Abdomen: Soft, Non Tender, Non-Distended, - - No fundal tenderness, incision well-healed Extremities: No edema, No Calf Tenderness Neurological: Cranial nerves II-XII grossly intact, Neuro grossly intact Psych/Mental Status: Normal Affect, Appropriate Microbiology Past 72 Hours 12/31/20 17:30 Nasal Secretion SARS-CoV-2 Antigen (Rapid) - Final Laboratory Results 12/31/20 17:30: Urine Color Yellow, Urine Clarity Clear, Urine pH 8.0, Ur Specific [place] 1.010, Urine Protein 30 H, Urine Glucose (UA) Normal, Urine Ketones 15 H, Urine Occult Blood 250 H, Urine Nitrite Negative, Urine Bilirubin Negative, Urine Urobilinogen Normal, Ur Leukocyte Esterase 500 H, Urine RBC 0-5 SEEN, Urine WBC 0-5 SEEN, Ur Squamous Epith Cells 5-10 SEEN, Urine Bacteria 0 SEEN, Urine Mucus 0 SEEN 12/31/20 17:50: WBC 21.4 H, RBC 4.82, Hgb 15.8 H, Hct 46.9, MCV 97.3, MCH 32.8 H , MCHC 33.7, RDW Std Deviation 49.3 H, RDW Coeff of Jennifer 13.6, Plt Count 227, MPV 10.6, Immature Gran % (Auto) 0.500, Neut % (Auto) 89.9 H, Lymph % (Auto) 3.4 L, [place] % (Auto) 3.7, Eos % (Auto) 2.0, Baso % (Auto) 0.5, Absolute Neuts (auto) 19.3 H, Absolute Lymphs (auto) 0.72 L, Nucleated RBC % 0 12/31/20 17:50: D-Dimer Quant (PE/DVT) 0.82 H* 12/31/20 17:50: Sodium 136, Potassium 3.5, Chloride 105, Carbon Dioxide 24.0, Anion Gap 7, BUN 10, Creatinine 1.15 H, Estim Creat Clear Calc 60.27, Est GFR (MDRD) Af Amer 68, Est GFR (MDRD) Non-Af 56 L, BUN/Creatinine Ratio 8.7 L, Glucose 113 H, Calcium 8.7 12/31/20 17:50: Lactic Acid 2.6 H* Current Medications Acetaminophen (Acetaminophen 325 Mg Tablet) 650 mg PO Q6H PRN PRN PRN Reason: Pain Score 1-10/Temp > 100.7 F Clotrimazole (Clotrimazole 1 Applic Tube) 1 applic TOPICAL BID JORGE A; Protocol Vancomycin IV Pharmacy to Dose (1 each/ Sodium Chloride) 500 mls @ 250 mls/hr IV PRN PRN; Protocol PRN Reason: Rx to Dose Piperacillin Sod/Tazobactam (Sod 3.375 gm/ Sodium Chloride) 50 mls @ 12.5 mls/hr IV Q8 JORGE A Vancomycin HCl 1,250 mg/ (Sodium Chloride) 275 mls @ 167 mls/hr IV Q12H JORGE A Melatonin (Melatonin 3 Mg Tablet) 3 mg PO QHS PRN PRN PRN Reason: INSOMNIA Ondansetron HCl (Ondansetron 4 Mg/2 Ml Vial) 4 mg IV Q8H PRN PRN PRN Reason: NAUSEA/VOMITING Assessment/Plan All Active Problems (Last Reviewed 12/12/20 @ 11:25 by Dasha Saldivar) No significant past medical history (Acute) SIRS (systemic inflammatory response syndrome) (Acute) Lactic acidosis (Acute) Sinus tachycardia seen on vamp stitcher (Acute) Uterine fibroid (Acute) History of tetanus, diphtheria, and acellular pertussis booster vaccination (Tdap) (Acute) 37 weeks gestation of (Resolved) Advanced maternal age risk, currently (Resolved) COVID-19 virus detected (Resolved) H/O section (Resolved) Obesity affecting (Resolved) (Resolved) premature rupture of membranes (PPROM) with unknown onset of labor (Resolved) Supervision of high risk , antepartum (Resolved) 35-year-old female G2, P2 status post repeat on 11/28 admitted for severe sepsis of unknown etiology SIRS -Presents with fevers at home up to 102, febrile up to 100.8 on arrival -White blood cell count 31 -Lactic acid elevated at 2.6 -Chest x-ray and CTA of the chest negative -pelvic CT performed-images reviewed, appear consistent with normal changes -D-dimer mildly elevated, however this is common given that she is only 1 month out from having a major abdominal surgery -No breast pain, redness, swelling -UA negative aside from positive leukocyte esterase -At this point unclear etiology. Very low suspicion for endometritis given uterus nontender to palpation and CT negative. No concern for mastitis at this time. Incision site well-healed is a very low suspicion for surgical site infection. -Started on vancomycin and Zosyn by hospitalist team -We will follow while inpatient state -Continue vitamin -Okay to continue breast-feeding while on antibiotics-breast pump given Multi Select Codes - Visit Charges Office Visit/Consults: [id number] IP Consult L3
[2021-01-01] VITALS (18 sets, daily range): BP systolic 88–113; BP diastolic 51–85; PULSE 64–88; RESP 14–98; TEMP 36.8–37.8; O2SAT 17–99
[2021-01-01] MEDS: Clotrimazole 1 APPLIC Tube TOPICAL ×3 (00:26→21:07)
[2021-01-01 00:27] LABS: Lactic Acid 0.9 mmol/L (0.4-1.9)
[2021-01-01] MEDS: Acetaminophen 325 MG Tablet 650 MG PO ×3 (00:27→13:34)
[2021-01-01] MEDS: 0.9% Normal Saline 1,000 ML 100 ML IV (00:44)
[2021-01-01 01:22] LABS: Procalcitonin 0.18 ng/mL (0.00-0.09)
[2021-01-01 04:57] LABS: Absolute Lymphocyte Count 1.16 X10^3/uL (0.83-4.51); Absolute Neutrophil Count 8.7 X10^3/uL (2.0-7.7); Basophil# 0.05 X10^3/uL; Basophil% 0.4 % (0-1); Eosinophil# 0.67 X10^3/uL; Eosinophils% 5.9 % (0-5); Hematocrit 41.2 % (37-47); Hemoglobin 13.7 g/dL (12.0-15.0); Lymphocyte # 1.16 X10^3/ul (0.83-4.51); Lymphocyte % 10.2 % (19-41); Mean Corp Hgb Conc 33.3 g/dL (32-36); Mean Corpuscular Hgb 32.6 pg (27.0-32.0); Mean Corpuscular Volume 98.1 fL (81-99); Mean Platelet Vol. 10.7 fl (6.2-12.0); Monocyte# 0.74 X10^3/uL; Monocyte% 6.5 % (0-10); NRBC Flagged by Analyzer 0 % (0-5); Neutrophil # 8.74 X10^3/uL (2.7-7.7); Neutrophil % 76.6 % (47-70); Platelet Count 201 K/mm3 (150-450); RBC Distribution Width CV 13.9 % (11.6-14.6); RBC Distribution Width SD 50.6 fl (35.1-43.9); White Blood Count 11.4 K/mm3 (4.4-11.0)
[2021-01-01 05:20] LABS: ALB/GLOB Ratio 0.8 RATIO (0.9-2.4); AST(SGOT) 18 U/L (15-37); Alanine Aminotransfer ALT/SGPT 31 U/L (13-56); Albumin, Serum 2.9 g/dL (3.2-5.0); Alkaline Phosphatase 76 U/L (45-117); Anion Gap 6 (5-15); BUN 8 mg/dL (7-18); BUN/Creat Ratio 10.6 RATIO (10-20); Calcium,Total 7.9 mg/dL (8.5-10.1); Chloride 109 mmol/L (98-107); Creatinine, Serum 0.75 mg/dL (0.55-1.02); EST Glomerular Filtration Rate 91 mL/min (>60); Est Glom Filt Rate - Afr Amer 111 mL/min (>60); Estimated Creatinine Clearance 92.41 ml/min; Globulin 3.5 g/dL (2.2-4.2); Glucose 107 mg/dL (74-106); Potassium 3.4 mmol/L (3.5-5.1); Protein, Total 6.4 g/dL (6.4-8.2); Sodium Level 139 mmol/L (136-145)
[2021-01-01] MEDS: Enoxaparin 40 MG/0.4 ML Syringe SC (05:27)
--- NOTE | 2021-01-01 07:10 | NURSING ---
RESP PANEL RESULTS NOTED NEGATIVE.
[2021-01-01] MEDS: Potassium Chloride Oral Tablet 20 MEQ 40 MEQ PO (08:21)
--- NOTE | 2021-01-01 10:00 | US_ITS ---
STUDY: ULTRASOUND OF THE FEMALE PELVIS - COMPLETE REASON FOR EXAM: Female, 35 years old. sepsis , vaginal bleeding LMP: TECHNIQUE: Transabdominal and Transvaginal TECHNICAL QUALITY: Adequate. COMPARISON: None. FINDINGS: The uterus is anteverted and is in a midline position. The uterus measures 10.0 x 7.0 x 4.6 cm. Normal uterine cervix. The endometrium measures 6 mm in thickness, and is hyperechoic. There is no demonstrated endometrial mass. There is no demonstrated myometrial mass. I.U.D. - The patient does not have an I.U.D. The right ovary is visualized. The right ovary measures 1.8 x 2.4 x 1.4 cm. There is no right ovarian cyst or ovarian mass. There is no visualized right adnexal mass or complex lesion. There is normal arterial and normal venous vascularity. The left ovary is non-visualized.. There is no fluid in the cul-de-sac. The pre void volume of the bladder was ml. The post void volume of the bladder was ml. Polycystic ovary disease: No. US/Transvaginal Non- IMPRESSION: Normal female pelvis. Electronically Signed: Ko Muniz MD at 11:26 EDT Tel , Service support ,
--- NOTE | 2021-01-01 10:00 | US_ITS ---
STUDY: ULTRASOUND OF THE FEMALE PELVIS - COMPLETE REASON FOR EXAM: Female, 35 years old. sepsis , vaginal bleeding LMP: TECHNIQUE: Transabdominal and Transvaginal TECHNICAL QUALITY: Adequate. COMPARISON: None. FINDINGS: The uterus is anteverted and is in a midline position. The uterus measures 10.0 x 7.0 x 4.6 cm. Normal uterine cervix. The endometrium measures 6 mm in thickness, and is hyperechoic. There is no demonstrated endometrial mass. There is no demonstrated myometrial mass. I.U.D. - The patient does not have an I.U.D. The right ovary is visualized. The right ovary measures 1.8 x 2.4 x 1.4 cm. There is no right ovarian cyst or ovarian mass. There is no visualized right adnexal mass or complex lesion. There is normal arterial and normal venous vascularity. The left ovary is non-visualized.. There is no fluid in the cul-de-sac. The pre void volume of the bladder was ml. The post void volume of the bladder was ml. Polycystic ovary disease: No. US/Pelvic (Non ) IMPRESSION: Normal female pelvis. Electronically Signed: Ko Muniz MD at 11:26 EDT Tel , Service support ,
--- NOTE | 2021-01-01 10:02 | PN.OBGYN_ITS ---
Patient Problems: Active and Suspected Problems (Last Reviewed 01/01/21 @ 02:[address] 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 Reports feeling much better aside from still having mild headache. Reports that she did began having vaginal bleeding again overnight last night. Reports that the symptoms close to normal period. Still denies uterine tenderness and foul-smelling discharge. Objective: Laboratory Tests 01/01/21 01/01/21 01/01/21 Range/Units 04:50 04:50 00:35 WBC 11.4 H (4.4-11.0) K/mm3 RBC 4.20 (4.2-5.4) M/mm3 Hgb 13.7 (12.0-15.0) g/dL Hct 41.2 (37-47) % MCV 98.1 (81-99) fL MCH 32.6 H (27.0-32.0) pg MCHC 33.3 (32-36) g/dL RDW Std Deviation 50.6 H (35.1-43.9) fl RDW Coeff of Jennifer 13.9 (11.6-14.6) % Plt Count 201 (150-450) K/mm3 MPV 10.7 (6.2-12.0) fl Immature Gran % (Auto) 0.400 (0.0-0.9) % Neut % (Auto) 76.6 H (47-70) % Lymph % (Auto) 10.2 L (19-41) % [place] % (Auto) 6.5 (0-10) % Eos % (Auto) 5.9 H (0-5) % Baso % (Auto) 0.4 (0-1) % Absolute Neuts (auto) 8.7 H (2.0-7.7) X10^3/uL Absolute Lymphs (auto) 1.16 (0.83-4.51) X10^3/uL Nucleated RBC % 0 (0-5) % D-Dimer Quant (PE/DVT) (0.27-0.49) FEU/ug/m Sodium 139 (136-145) mmol/L Potassium 3.4 L (3.5-5.1) mmol/L Chloride 109 H (98-107) mmol/L Carbon Dioxide 24.0 (21.0-32.0) mmol/L Anion Gap 6 (5-15) BUN 8 (7-18) mg/dL Creatinine 0.75 (0.55-1.02) mg/dL Estim Creat Clear Calc 92.41 ml/min Est GFR (MDRD) Af Amer 111 (>60) mL/min Est GFR (MDRD) Non-Af 91 (>60) mL/min BUN/Creatinine Ratio 10.6 (10-20) RATIO Glucose 107 H (74-106) mg/dL Lactic Acid (0.4-1.9) mmol/L Calcium 7.9 L (8.5-10.1) mg/dL Total Bilirubin 0.40 (0.20-1.00) mg/dL AST 18 (15-37) U/L ALT 31 (13-56) U/L Alkaline Phosphatase 76 (45-117) U/L Total Protein 6.4 (6.4-8.2) g/dL Albumin 2.9 L (3.2-5.0) g/dL Globulin 3.5 (2.2-4.2) g/dL Albumin/Globulin Ratio 0.8 L (0.9-2.4) RATIO Procalcitonin (0.00-0.09) ng/mL Urine Color (Yellow) Urine Clarity (Clear) Urine pH (5.0 - 8.0) Ur Specific [place] (1.002-1.030) Urine Protein (Negative) mg/dl Urine Glucose (UA) (Normal) mg/dl Urine Ketones (Negative) mg/dl Urine Occult Blood (Negative) /ul Urine Nitrite (Negative) Urine Bilirubin (Negative) mg/dL Urine Urobilinogen (Normal) mg/dl Ur Leukocyte Esterase (Negative) /ul Urine RBC (0-5) /hpf Urine WBC (0-5) /hpf Ur Squamous Epith Cells (5-10) /hpf Urine Bacteria (None Seen) /hpf Urine Mucus (<or=2+) /hpf COVID-19 ([facility]O) Not Detected (Not Detect) 12/31/20 12/31/20 12/31/20 Range/Units 23:43 17:50 17:50 WBC (4.4-11.0) K/mm3 RBC (4.2-5.4) M/mm3 Hgb (12.0-15.0) g/dL Hct (37-47) % MCV (81-99) fL MCH (27.0-32.0) pg MCHC (32-36) g/dL RDW Std Deviation (35.1-43.9) fl RDW Coeff of Jennifer (11.6-14.6) % Plt Count (150-450) K/mm3 MPV (6.2-12.0) fl Immature Gran % (Auto) (0.0-0.9) % Neut % (Auto) (47-70) % Lymph % (Auto) (19-41) % [place] % (Auto) (0-10) % Eos % (Auto) (0-5) % Baso % (Auto) (0-1) % Absolute Neuts (auto) (2.0-7.7) X10^3/uL Absolute Lymphs (auto) (0.83-4.51) X10^3/uL Nucleated RBC % (0-5) % D-Dimer Quant (PE/DVT) (0.27-0.49) FEU/ug/m Sodium 136 (136-145) mmol/L Potassium 3.5 (3.5-5.1) mmol/L Chloride 105 (98-107) mmol/L Carbon Dioxide 24.0 (21.0-32.0) mmol/L Anion Gap 7 (5-15) BUN 10 (7-18) mg/dL Creatinine 1.15 H (0.55-1.02) mg/dL Estim Creat Clear Calc 60.27 ml/min Est GFR (MDRD) Af Amer 68 (>60) mL/min Est GFR (MDRD) Non-Af 56 L (>60) mL/min BUN/Creatinine Ratio 8.7 L (10-20) RATIO Glucose 113 H (74-106) mg/dL Lactic Acid 0.9 2.6 H* (0.4-1.9) mmol/L Calcium 8.7 (8.5-10.1) mg/dL Total Bilirubin (0.20-1.00) mg/dL AST (15-37) U/L ALT (13-56) U/L Alkaline Phosphatase (45-117) U/L Total Protein (6.4-8.2) g/dL Albumin (3.2-5.0) g/dL Globulin (2.2-4.2) g/dL Albumin/Globulin Ratio (0.9-2.4) RATIO Procalcitonin (0.00-0.09) ng/mL Urine Color (Yellow) Urine Clarity (Clear) Urine pH (5.0 - 8.0) Ur Specific [place] (1.002-1.030) Urine Protein (Negative) mg/dl Urine Glucose (UA) (Normal) mg/dl Urine Ketones (Negative) mg/dl Urine Occult Blood (Negative) /ul Urine Nitrite (Negative) Urine Bilirubin (Negative) mg/dL Urine Urobilinogen (Normal) mg/dl Ur Leukocyte Esterase (Negative) /ul Urine RBC (0-5) /hpf Urine WBC (0-5) /hpf Ur Squamous Epith Cells (5-10) /hpf Urine Bacteria (None Seen) /hpf Urine Mucus (<or=2+) /hpf COVID-19 ([facility]O) (Not Detect) 12/31/20 12/31/20 12/31/20 Range/Units 17:50 17:50 17:30 WBC 21.4 H (4.4-11.0) K/mm3 RBC 4.82 (4.2-5.4) M/mm3 Hgb 15.8 H (12.0-15.0) g/dL Hct 46.9 (37-47) % MCV 97.3 (81-99) fL MCH 32.8 H (27.0-32.0) pg MCHC 33.7 (32-36) g/dL RDW Std Deviation 49.3 H (35.1-43.9) fl RDW Coeff of Jennifer 13.6 (11.6-14.6) % Plt Count 227 (150-450) K/mm3 MPV 10.6 (6.2-12.0) fl Immature Gran % (Auto) 0.500 (0.0-0.9) % Neut % (Auto) 89.9 H (47-70) % Lymph % (Auto) 3.4 L (19-41) % [place] % (Auto) 3.7 (0-10) % Eos % (Auto) 2.0 (0-5) % Baso % (Auto) 0.5 (0-1) % Absolute Neuts (auto) 19.3 H (2.0-7.7) X10^3/uL Absolute Lymphs (auto) 0.72 L (0.83-4.51) X10^3/uL Nucleated RBC % 0 (0-5) % D-Dimer Quant (PE/DVT) 0.82 H* (0.27-0.49) FEU/ug/m Sodium (136-145) mmol/L Potassium (3.5-5.1) mmol/L Chloride (98-107) mmol/L Carbon Dioxide (21.0-32.0) mmol/L Anion Gap (5-15) BUN (7-18) mg/dL Creatinine (0.55-1.02) mg/dL Estim Creat Clear Calc ml/min Est GFR (MDRD) Af Amer (>60) mL/min Est GFR (MDRD) Non-Af (>60) mL/min BUN/Creatinine Ratio (10-20) RATIO Glucose (74-106) mg/dL Lactic Acid (0.4-1.9) mmol/L Calcium (8.5-10.1) mg/dL Total Bilirubin (0.20-1.00) mg/dL AST (15-37) U/L ALT (13-56) U/L Alkaline Phosphatase (45-117) U/L Total Protein (6.4-8.2) g/dL Albumin (3.2-5.0) g/dL Globulin (2.2-4.2) g/dL Albumin/Globulin Ratio (0.9-2.4) RATIO Procalcitonin (0.00-0.09) ng/mL Urine Color Yellow (Yellow) Urine Clarity Clear (Clear) Urine pH 8.0 (5.0 - 8.0) Ur Specific [place] 1.010 (1.002-1.030) Urine Protein 30 H (Negative) mg/dl Urine Glucose (UA) Normal (Normal) mg/dl Urine Ketones 15 H (Negative) mg/dl Urine Occult Blood 250 H (Negative) /ul Urine Nitrite Negative (Negative) Urine Bilirubin Negative (Negative) mg/dL Urine Urobilinogen Normal (Normal) mg/dl Ur Leukocyte Esterase 500 H (Negative) /ul Urine RBC 0-5 SEEN (0-5) /hpf Urine WBC 0-5 SEEN (0-5) /hpf Ur Squamous Epith Cells 5-10 SEEN (5-10) /hpf Urine Bacteria 0 SEEN (None Seen) /hpf Urine Mucus 0 SEEN (<or=2+) /hpf COVID-19 ([facility]) (Not Detect) 12/31/20 Range/Units 00:25 WBC (4.4-11.0) K/mm3 RBC (4.2-5.4) M/mm3 Hgb (12.0-15.0) g/dL Hct (37-47) % MCV (81-99) fL MCH (27.0-32.0) pg MCHC (32-36) g/dL RDW Std Deviation (35.1-43.9) fl RDW Coeff of Jennifer (11.6-14.6) % Plt Count (150-450) K/mm3 MPV (6.2-12.0) fl Immature Gran % (Auto) (0.0-0.9) % Neut % (Auto) (47-70) % Lymph % (Auto) (19-41) % [place] % (Auto) (0-10) % Eos % (Auto) (0-5) % Baso % (Auto) (0-1) % Absolute Neuts (auto) (2.0-7.7) X10^3/uL Absolute Lymphs (auto) (0.83-4.51) X10^3/uL Nucleated RBC % (0-5) % D-Dimer Quant (PE/DVT) (0.27-0.49) FEU/ug/m Sodium (136-145) mmol/L Potassium (3.5-5.1) mmol/L Chloride (98-107) mmol/L Carbon Dioxide (21.0-32.0) mmol/L Anion Gap (5-15) BUN (7-18) mg/dL Creatinine (0.55-1.02) mg/dL Estim Creat Clear Calc ml/min Est GFR (MDRD) Af Amer (>60) mL/min Est GFR (MDRD) Non-Af (>60) mL/min BUN/Creatinine Ratio (10-20) RATIO Glucose (74-106) mg/dL Lactic Acid (0.4-1.9) mmol/L Calcium (8.5-10.1) mg/dL Total Bilirubin (0.20-1.00) mg/dL AST (15-37) U/L ALT (13-56) U/L Alkaline Phosphatase (45-117) U/L Total Protein (6.4-8.2) g/dL Albumin (3.2-5.0) g/dL Globulin (2.2-4.2) g/dL Albumin/Globulin Ratio (0.9-2.4) RATIO Procalcitonin 0.18 H (0.00-0.09) ng/mL Urine Color (Yellow) Urine Clarity (Clear) Urine pH (5.0 - 8.0) Ur Specific [place] (1.002-1.030) Urine Protein (Negative) mg/dl Urine Glucose (UA) (Normal) mg/dl Urine Ketones (Negative) mg/dl Urine Occult Blood (Negative) /ul Urine Nitrite (Negative) Urine Bilirubin (Negative) mg/dL Urine Urobilinogen (Normal) mg/dl Ur Leukocyte Esterase (Negative) /ul Urine RBC (0-5) /hpf Urine WBC (0-5) /hpf Ur Squamous Epith Cells (5-10) /hpf Urine Bacteria (None Seen) /hpf Urine Mucus (<or=2+) /hpf COVID-19 ([facility]O) (Not Detect) - Physical Exam Vitals/I&O's: Vital Signs Temp Pulse Resp BP Pulse Ox 98.9 F 87 19 H 104/67 97 01/01/21 06:41 01/01/21 09:00 01/01/21 09:00 01/01/21 09:00 01/01/21 09:00 Oxygen Delivery Method Room Air Weight: 216 lb 4.375 oz Body Mass Index (BMI) 35.9 Intake and Output for Last 24 Hours 12/30/20 12/31/20 01/01/21 23:59 23:59 23:59 Intake Total 1140 / 1490 920 / 920 Balance 1140 / 1490 920 / 920 General: Alert, Oriented x3, Cooperative, No apparent distress, Well developed, Well nourished HEENT: Atraumatic, PERRLA, EOMI, Normocephalic Neck: Supple, No JVD Lungs: Clear to auscultation, Normal air movement Cardiovascular: Regular rate, Regular Rhythm Abdomen: Soft, Non Tender, Non-Distended, - - No fundal tenderness Extremities: No edema, No Calf Tenderness Neurological: Cranial nerves II-XII grossly intact, Neuro grossly intact Psych/Mental Status: Normal Affect, Appropriate Microbiology Past 72 Hours 01/01/21 00:35 Mucosa - Nasopharyngeal Respiratory Panel (PCR) - Final 12/31/20 17:30 Nasal Secretion SARS-CoV-2 Antigen (Rapid) - Final Laboratory Results 12/31/20 00:25: Procalcitonin 0.18 H 12/31/20 17:30: Urine Color Yellow, Urine Clarity Clear, Urine pH 8.0, Ur Specific [place] 1.010, Urine Protein 30 H, Urine Glucose (UA) Normal, Urine Ketones 15 H, Urine Occult Blood 250 H, Urine Nitrite Negative, Urine Bilirubin Negative, Urine Urobilinogen Normal, Ur Leukocyte Esterase 500 H, Urine RBC 0-5 SEEN, Urine WBC 0-5 SEEN, Ur Squamous Epith Cells 5-10 SEEN, Urine Bacteria 0 SEEN, Urine Mucus 0 SEEN 12/31/20 17:50: WBC 21.4 H, RBC 4.82, Hgb 15.8 H, Hct 46.9, MCV 97.3, MCH 32.8 H , MCHC 33.7, RDW Std Deviation 49.3 H, RDW Coeff of Jennifer 13.6, Plt Count 227, MPV 10.6, Immature Gran % (Auto) 0.500, Neut % (Auto) 89.9 H, Lymph % (Auto) 3.4 L, [place] % (Auto) 3.7, Eos % (Auto) 2.0, Baso % (Auto) 0.5, Absolute Neuts (auto) 19.3 H, Absolute Lymphs (auto) 0.72 L, Nucleated RBC % 0 12/31/20 17:50: D-Dimer Quant (PE/DVT) 0.82 H* 12/31/20 17:50: Sodium 136, Potassium 3.5, Chloride 105, Carbon Dioxide 24.0, Anion Gap 7, BUN 10, Creatinine 1.15 H, Estim Creat Clear Calc 60.27, Est GFR (MDRD) Af Amer 68, Est GFR (MDRD) Non-Af 56 L, BUN/Creatinine Ratio 8.7 L, Glucose 113 H, Calcium 8.7 12/31/20 17:50: Lactic Acid 2.6 H* 12/31/20 23:43: Lactic Acid 0.9 01/01/21 00:35: COVID-19 ([facility]O) Not Detected 01/01/21 04:50: WBC 11.4 H, RBC 4.20, Hgb 13.7, Hct 41.2, MCV 98.1, MCH 32.6 H, MCHC 33.3, RDW Std Deviation 50.6 H, RDW Coeff of Jennifer 13.9, Plt Count 201, MPV 10.7, Immature Gran % (Auto) 0.400, Neut % (Auto) 76.6 H, Lymph % (Auto) 10.2 L, [place] % (Auto) 6.5, Eos % (Auto) 5.9 H, Baso % (Auto) 0.4, Absolute Neuts (auto) 8.7 H, Absolute Lymphs (auto) 1.16, Nucleated RBC % 0 01/01/21 04:50: Sodium 139, Potassium 3.4 L, Chloride 109 H, Carbon Dioxide 24.0, Anion Gap 6, BUN 8, Creatinine 0.75, Estim Creat Clear Calc 92.41, Est GFR (MDRD) Af Amer 111, Est GFR (MDRD) Non-Af 91, BUN/Creatinine Ratio 10.6, Glucose 107 H, Calcium 7.9 L, Total Bilirubin 0.40, AST 18, ALT 31, Alkaline Phosphatase 76, Total Protein 6.4, Albumin 2.9 L, Globulin 3.5, Albumin/Globulin Ratio 0.8 L Current Medications Acetaminophen (Acetaminophen 325 Mg Tablet) 650 mg PO Q6H PRN PRN PRN Reason: Pain Score 1-10/Temp > 100.7 F Last Admin: 01/01/21 06:37 Dose: 650 mg Documented by: Clotrimazole (Clotrimazole 1 Applic Tube) 1 applic TOPICAL BID [facility]; Protocol Last Admin: 01/01/21 09:00 Dose: 1 applic Documented by: Enoxaparin Sodium (Enoxaparin 40 Mg/0.4 Ml Syringe) 40 mg SC DAILY@0600 [facility] Last Admin: 01/01/21 05:27 Dose: 40 mg Documented by: Vancomycin IV Pharmacy to Dose (1 each/ Sodium Chloride) 500 mls @ 250 mls/hr IV PRN PRN; Protocol PRN Reason: Rx to Dose Piperacillin Sod/Tazobactam (Sod 3.375 gm/ Sodium Chloride) 50 mls @ 12.5 mls/hr IV Q8 [facility] Last Infusion: 01/01/21 09:35 Dose: Infused Documented by: Vancomycin HCl 1,250 mg/ (Sodium Chloride) 275 mls @ 167 mls/hr IV Q12H [facility] Last Admin: 01/01/21 09:35 Dose: 167 mls/hr Documented by: Sodium Chloride () 1,000 mls @ 100 mls/hr IV .Q10H [facility] Last Admin: 01/01/21 00:44 Dose: 100 mls/hr Documented by: Melatonin (Melatonin 3 Mg Tablet) 3 mg PO QHS PRN PRN PRN Reason: INSOMNIA Ondansetron HCl (Ondansetron 4 Mg/2 Ml Vial) 4 mg IV Q8H PRN PRN PRN Reason: NAUSEA/VOMITING Sodium Chloride (0.9% Saline Lock 10 Ml Syringe) 10 - 40 ml IV UD PRN PRN Reason: SALINE FLUSH Medical Necessity - Tobacco Use Smoking Status: Former smoker Assessment/Plan All Active Problems (Last Reviewed 01/01/21 @ 02:[address] 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 (Acute) History of tetanus, diphtheria, and acellular pertussis booster vaccination (Tdap) (Acute) 37 weeks gestation of (Resolved) Advanced maternal age risk, currently (Resolved) COVID-19 virus detected (Resolved) H/O section (Resolved) Obesity affecting (Resolved) (Resolved) premature rupture of membranes (PPROM) with unknown onset of labor (Resolved) Supervision of high risk , antepartum (Resolved) 35-year-old female G2, P2 status post repeat on 11/28 admitted for severe sepsis of unknown etiology Sepsis of unknown etiology -Symptoms much improved this morning -Admitted to hospitalist service -On vancomycin and Zosyn -Leukocytosis significantly decreased this morning -Lactic acidosis resolved with hydration -Patient did begin bleeding again last night-discussed with hospitalist team and given that we still do not have a clear etiology of her infection, plan for transvaginal ultrasound to rule out retained products of conception state -Continue vitamin -Okay to continue breast-feeding while on antibiotics-breast pump given
--- NOTE | 2021-01-01 15:47 | PCM.PN.HOSP ---
Patient Problems: Active and Suspected Problems (Last Reviewed 01/01/21 @ 02:[address] 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 She has no current complaints. She continues to have lochia. She denies any abdominal pain, nausea, vomiting. Her surgical incision is closed. Vitals/I&O's: Vital Signs Temp Pulse Resp BP Pulse Ox 98.3 F 66 14 97/58 L 96 01/01/21 13:27 01/01/21 13:27 01/01/21 13:27 01/01/21 13:27 01/01/21 13:27 Oxygen Delivery Method Room Air Weight: 98.1 kg Body Mass Index (BMI) 35.9 Intake and Output for Last 24 Hours 12/30/20 12/31/20 01/01/21 23:59 23:59 23:59 Intake Total 1140 / 1490 2195 / 2195 Output Total 360 / 360 Balance 1140 / 1490 1835 / 1835 General: Alert, Oriented x3, Cooperative, No apparent distress, Well developed, Well nourished, - - Very pleasant middle-aged white female, sitting up in bed eating breakfast and watching television HEENT: Atraumatic, PERRLA, EOMI, Normocephalic, EAC Clear Oral: Moist Mucosa, No Gingival or Mucosal Lesions/ Ulcerations, - - Good dentition, Mallampati 2, no thrush Neck: Supple, No JVD, Negative Carotid Bruits, Negative Hepatojugular Reflux, Trachea Midline, Thyroid Normal Size and Texture Lungs: Clear to auscultation, Normal air movement, No rhonchi, No wheeze, No rales Cardiovascular: Regular rate, Regular Rhythm, Normal S1, Normal S2, No murmurs, No Ectopic Activity, No rub noted, No Gallop Abdomen: Bowel Sounds Present, Soft, Non Tender, Non-Distended, - - scar is well-healed with no signs of infection and nontender Extremities: No clubbing, No cyanosis, No edema, Capillary Refill Less than 3 Seconds, Peripheral Pulses Normal Skin: No rashes, No breakdown, - - Bilateral breasts were examined for signs of mastitis there is no tenderness, induration, or tissue warmth Musculoskeletal: No Tenderness to Palpation of Joints or Extremities, No Muscle Wasting Lymphatic: No Cervical, Supraclavicular, or Inguinal Adenopathy Neurological: Cranial nerves II-XII grossly intact, Neuro grossly intact, Muscle tone normal, Sensory exam intact to light touch and pain, Coordination normal Psych/Mental Status: Normal Affect, Appropriate, - - Very pleasant Microbiology Past 72 Hours 12/31/20 17:30 Interface Orders Urine Culture - Preliminary Culture exhibits no growth. 01/01/21 00:35 Mucosa - Nasopharyngeal Respiratory Panel (PCR) - Final 12/31/20 17:30 Nasal Secretion SARS-CoV-2 Antigen (Rapid) - Final Laboratory Results 12/31/20 00:25: Procalcitonin 0.18 H 12/31/20 17:30: Urine Color Yellow, Urine Clarity Clear, Urine pH 8.0, Ur Specific [place] 1.010, Urine Protein 30 H, Urine Glucose (UA) Normal, Urine Ketones 15 H, Urine Occult Blood 250 H, Urine Nitrite Negative, Urine Bilirubin Negative, Urine Urobilinogen Normal, Ur Leukocyte Esterase 500 H, Urine RBC 0-5 SEEN, Urine WBC 0-5 SEEN, Ur Squamous Epith Cells 5-10 SEEN, Urine Bacteria 0 SEEN, Urine Mucus 0 SEEN 12/31/20 17:50: WBC 21.4 H, RBC 4.82, Hgb 15.8 H, Hct 46.9, MCV 97.3, MCH 32.8 H, MCHC 33.7, RDW Std Deviation 49.3 H, RDW Coeff of Jennifer 13.6, Plt Count 227, MPV 10.6, Immature Gran % (Auto) 0.500, Neut % (Auto) 89.9 H, Lymph % (Auto) 3.4 L, [place] % (Auto) 3.7, Eos % (Auto) 2.0, Baso % (Auto) 0.5, Absolute Neuts (auto) 19.3 H, Absolute Lymphs (auto) 0.72 L, Nucleated RBC % 0 12/31/20 17:50: D-Dimer Quant (PE/DVT) 0.82 H* 12/31/20 17:50: Sodium 136, Potassium 3.5, Chloride 105, Carbon Dioxide 24.0, Anion Gap 7, BUN 10, Creatinine 1.15 H, Estim Creat Clear Calc 60.27, Est GFR (MDRD) Af Amer 68, Est GFR (MDRD) Non-Af 56 L, BUN/Creatinine Ratio 8.7 L, Glucose 113 H, Calcium 8.7 12/31/20 17:50: Lactic Acid 2.6 H* 12/31/20 23:43: Lactic Acid 0.9 01/01/21 00:35: COVID-19 ([facility]O) Not Detected 01/01/21 04:50: WBC 11.4 H, RBC 4.20, Hgb 13.7, Hct 41.2, MCV 98.1, MCH 32.6 H, MCHC 33.3, RDW Std Deviation 50.6 H, RDW Coeff of Jennifer 13.9, Plt Count 201, MPV 10.7, Immature Gran % (Auto) 0.400, Neut % (Auto) 76.6 H, Lymph % (Auto) 10.2 L, [place] % (Auto) 6.5, Eos % (Auto) 5.9 H, Baso % (Auto) 0.4, Absolute Neuts (auto) 8.7 H, Absolute Lymphs (auto) 1.16, Nucleated RBC % 0 01/01/21 04:50: Sodium 139, Potassium 3.4 L, Chloride 109 H, Carbon Dioxide 24.0, Anion Gap 6, BUN 8, Creatinine 0.75, Estim Creat Clear Calc 92.41, Est GFR (MDRD) Af Amer 111, Est GFR (MDRD) Non-Af 91, BUN/Creatinine Ratio 10.6, Glucose 107 H, Calcium 7.9 L, Total Bilirubin 0.40, AST 18, ALT 31, Alkaline Phosphatase 76, Total Protein 6.4, Albumin 2.9 L, Globulin 3.5, Albumin/Globulin Ratio 0.8 L Current Medications Acetaminophen (Acetaminophen 325 Mg Tablet) 650 mg PO Q6H PRN PRN PRN Reason: Pain Score 1-10/Temp > 100.7 F Last Admin: 01/01/21 13:34 Dose: 650 mg Documented by: Clotrimazole (Clotrimazole 1 Applic Tube) 1 applic TOPICAL BID [facility]; Protocol Last Admin: 01/01/21 09:00 Dose: 1 applic Documented by: Enoxaparin Sodium (Enoxaparin 40 Mg/0.4 Ml Syringe) 40 mg SC DAILY@0600 [facility] Last Admin: 01/01/21 05:27 Dose: 40 mg Documented by: Vancomycin IV Pharmacy to Dose (1 each/ Sodium Chloride) 500 mls @ 250 mls/hr IV PRN PRN; Protocol PRN Reason: Rx to Dose Piperacillin Sod/Tazobactam (Sod 3.375 gm/ Sodium Chloride) 50 mls @ 12.5 mls/hr IV Q8 [facility] Last Admin: 01/01/21 13:26 Dose: 12.5 mls/hr Documented by: Vancomycin HCl 1,250 mg/ (Sodium Chloride) 275 mls @ 167 mls/hr IV Q12H [facility] Last Infusion: 01/01/21 11:30 Dose: Infused Documented by: Melatonin (Melatonin 3 Mg Tablet) 3 mg PO QHS PRN PRN PRN Reason: INSOMNIA Ondansetron HCl (Ondansetron 4 Mg/2 Ml Vial) 4 mg IV Q8H PRN PRN PRN Reason: NAUSEA/VOMITING Sodium Chloride (0.9% Saline Lock 10 Ml Syringe) 10 - 40 ml IV UD PRN PRN Reason: SALINE FLUSH STROKE Vital Signs/Narrative: Vital Signs Temp Pulse Resp BP BP Pulse Ox 01/01/21 13:27 98.3 F 66 14 97/58 L 96 01/01/21 12:00 77 98 H 97/79 19 Medical Necessity - Tobacco Use Smoking Status: Former smoker Assessment/Plan All Active Problems (Last Reviewed 01/01/21 @ 02:[address] 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) History of tetanus, diphtheria, and acellular pertussis booster vaccination (Tdap) (Acute) 37 weeks gestation of (Resolved) Advanced maternal age risk, currently (Resolved) COVID-19 virus detected (Resolved) H/O section (Resolved) Obesity affecting (Resolved) (Resolved) premature rupture of membranes (PPROM) with unknown onset of labor (Resolved) Supervision of high risk , antepartum (Resolved) Sepsis secondary to unknown etiology -CT abdomen pelvis were negative for any signs of abscesses with recent / -Transvaginal ultrasound was negative for retained products of conception and was otherwise normal -Leukocytosis has dramatically improved from 21.4-11.4 -Clinically patient has improved significantly -Covid negative -Upper respiratory viral panel negative -Urine culture is reported as no growth -Procalcitonin was 0.18 -Blood cultures x2 are pending -Continue current antibiotics of vancomycin and Zosyn -Patient has remained afebrile since yesterday -No signs of mastitis--> bilateral breasts are soft without erythema or induration and no pain is present -Appreciate STUDENT SUPPORT ADVISOR input Lactic acidosis -Resolved Elevated D-dimer -CTA of the chest was done in the emergency department and was negative for pulmonary embolism, of note there was also no airspace disease Hypokalemia -40 mEq potassium were dosed -Repeat BMP in a.m. KAMILA -Resolved 4 weeks status post -Continue pumping milk -Transvaginal ultrasound was normal -No further issues to be addressed Sinus tachycardia -Resolved History of uterine fibroids -No current issues DVT prophylaxis -Lovenox daily CODE STATUS -Full code Inpatient E&M: [id number] [facility] L3
[2021-01-01] MEDS: 0.9% Saline Lock 10 ML Syringe IV (20:50)
[2021-01-02 03:14] VITALS: BP 103/46; PULSE 58; RESP 16; TEMP 36.6; O2SAT 97
[2021-01-02] MEDS: 0.9% Saline Lock 10 ML Syringe IV ×2 (06:05→14:21)
[2021-01-02] MEDS: Enoxaparin 40 MG/0.4 ML Syringe SC (06:05)
[2021-01-02 07:04] LABS: Absolute Lymphocyte Count 1.95 X10^3/uL (0.83-4.51); Absolute Neutrophil Count 2.1 X10^3/uL (2.0-7.7); Basophil# 0.03 X10^3/uL; Basophil% 0.6 % (0-1); Eosinophil# 0.57 X10^3/uL; Eosinophils% 10.7 % (0-5); Hematocrit 40.3 % (37-47); Hemoglobin 12.9 g/dL (12.0-15.0); Lymphocyte # 1.95 X10^3/ul (0.83-4.51); Lymphocyte % 36.7 % (19-41); Mean Corpuscular Hgb 31.5 pg (27.0-32.0); Mean Corpuscular Volume 98.5 fL (81-99); Mean Platelet Vol. 10.6 fl (6.2-12.0); Monocyte# 0.61 X10^3/uL; Monocyte% 11.5 % (0-10); NRBC Flagged by Analyzer 0 % (0-5); Neutrophil # 2.14 X10^3/uL (2.7-7.7); Neutrophil % 40.3 % (47-70); Platelet Count 184 K/mm3 (150-450); RBC Distribution Width CV 13.8 % (11.6-14.6); RBC Distribution Width SD 50.8 fl (35.1-43.9); Red Blood Count 4.09 M/mm3 (4.2-5.4); White Blood Count 5.3 K/mm3 (4.4-11.0)
[2021-01-02 07:25] LABS: Anion Gap 4 (5-15); BUN 9 mg/dL (7-18); BUN/Creat Ratio 13.3 RATIO (10-20); Calcium,Total 8.3 mg/dL (8.5-10.1); Chloride 112 mmol/L (98-107); Creatinine, Serum 0.68 mg/dL (0.55-1.02); EST Glomerular Filtration Rate 104 mL/min (>60); Est Glom Filt Rate - Afr Amer 125 mL/min (>60); Estimated Creatinine Clearance 101.93 ml/min; Glucose 92 mg/dL (74-106); Potassium 4.1 mmol/L (3.5-5.1); Sodium Level 140 mmol/L (136-145)
[2021-01-02] MEDS: Clotrimazole 1 APPLIC Tube TOPICAL ×2 (08:28→22:00)
[2021-01-02 08:39] LABS: Vancomycin, Trough Level 13.6 ug/mL (5.0-15.0)
--- NOTE | 2021-01-02 08:53 | PN_ITS ---
Patient Problems: Active and Suspected Problems (Last Reviewed 01/01/21 @ 02:[address] Gilbert Stratton MD) SIRS (systemic inflammatory response syndrome) (Acute) Lactic acidosis (Acute) Sinus tachycardia seen on site monitor (Acute) History of tetanus, diphtheria, and acellular pertussis booster vaccination (Tdap) (Acute) Reason for Visit: Sepsis of unknown origin Subjective: Patient is a 35-year-old lady who is 4 weeks following section presented with flulike symptoms. Patient evaluation on admission consistent with sepsis admitted to regular nursing floor for further evaluation and management Objective: GENERAL: cooperative HEENT: Atraumatic; EYES; Anicteric, Normal Conjunctiva NECK; supple, normal thyroid, RESPIRATORY: Diminished to auscultation CARDIOVASCULAR: Regular S1 S2, GI: soft, normoactive bowel sounds, : No Renal angle tenderness; EXTREMITIES: No edema, no clubbing, MUSCULOSKELETAL: no muscle waisting NEURO: Awake; no lateralizing signs. SKIN: No Rash PSYCH; Flat affect Vitals/I&O's: Vital Signs Temp Pulse Resp BP Pulse Ox 97.9 F 58 L 16 103/46 L 97 01/02/21 03:14 01/02/21 03:14 01/02/21 03:14 01/02/21 03:14 01/02/21 03:14 Oxygen Delivery Method Room Air Weight: 98.1 kg Body Mass Index (BMI) 35.9 Intake and Output for Last 24 Hours 12/31/20 01/01/21 01/02/21 23:59 23:59 23:59 Intake Total 1140 / 1490 2520 / 2520 50 / 50 Output Total 360 / 360 Balance 1140 / 1490 2160 / 2160 50 / 50 Microbiology Past 72 Hours 12/31/20 17:30 Interface Orders Urine Culture - Preliminary Culture exhibits no growth. 01/01/21 00:35 Mucosa - Nasopharyngeal Respiratory Panel (PCR) - Final 12/31/20 17:30 Nasal Secretion SARS-CoV-2 Antigen (Rapid) - Final Laboratory Results 01/02/21 06:45: WBC 5.3, RBC 4.09 L, Hgb 12.9, Hct 40.3, MCV 98.5, MCH 31.5, MCHC 32.0, RDW Std Deviation 50.8 H, RDW Coeff of Jennifer 13.8, Plt Count 184, MPV 10.6, Immature Gran % (Auto) 0.200, Neut % (Auto) 40.3 L, Lymph % (Auto) 36.7, Reynolds % (Auto) 11.5 H, Eos % (Auto) 10.7 H, Baso % (Auto) 0.6, Absolute Neuts (auto) 2.1, Absolute Lymphs (auto) 1.95, Nucleated RBC % 0 01/02/21 06:45: Sodium 140, Potassium 4.1, Chloride 112 H, Carbon Dioxide 24.0, Anion Gap 4 L, BUN 9, Creatinine 0.68, Estim Creat Clear Calc 101.93, Est GFR (MDRD) Af Amer 125, Est GFR (MDRD) Non-Af 104, BUN/Creatinine Ratio 13.3, Glucose 92, Calcium 8.3 L 01/02/21 07:55: Vancomycin Trough 13.6 Current Medications Acetaminophen (Acetaminophen 325 Mg Tablet) 650 mg PO Q6H PRN PRN PRN Reason: Pain Score 1-10/Temp > 100.7 F Last Admin: 01/01/21 13:34 Dose: 650 mg Documented by: Clotrimazole (Clotrimazole 1 Applic Tube) 1 applic TOPICAL BID [facility]; Protocol Last Admin: 01/02/21 08:28 Dose: 1 applic Documented by: Enoxaparin Sodium (Enoxaparin 40 Mg/0.4 Ml Syringe) 40 mg SC DAILY@0600 [facility] Last Admin: 01/02/21 06:05 Dose: 40 mg Documented by: Vancomycin IV Pharmacy to Dose (1 each/ Sodium Chloride) 500 mls @ 250 mls/hr IV PRN PRN; Protocol PRN Reason: Rx to Dose Piperacillin Sod/Tazobactam (Sod 3.375 gm/ Sodium Chloride) 50 mls @ 12.5 mls/hr IV Q8 [facility] Last Admin: 01/02/21 06:07 Dose: 12.5 mls/hr Documented by: Vancomycin HCl 1,250 mg/ (Sodium Chloride) 275 mls @ 167 mls/hr IV Q12H [facility] Last Infusion: 01/01/21 22:32 Dose: Infused Documented by: Melatonin (Melatonin 3 Mg Tablet) 3 mg PO QHS PRN PRN PRN Reason: INSOMNIA Ondansetron HCl (Ondansetron 4 Mg/2 Ml Vial) 4 mg IV Q8H PRN PRN PRN Reason: NAUSEA/VOMITING Sodium Chloride (0.9% Saline Lock 10 Ml Syringe) 10 - 40 ml IV UD PRN PRN Reason: SALINE FLUSH Last Admin: 01/02/21 06:05 Dose: 10 ml Documented by: Medical Necessity - Tobacco Use Smoking Status: Former smoker Assessment/Plan All Active Problems (Last Reviewed 01/01/21 @ 02:[address] Gilbert Stratton MD) SIRS (systemic inflammatory response syndrome) (Acute) Lactic acidosis (Acute) Sinus tachycardia seen on site monitor (Acute) History of tetanus, diphtheria, and acellular pertussis booster vaccination (Tdap) (Acute) 37 weeks gestation of (Resolved) Advanced maternal age risk, currently (Resolved) COVID-19 virus detected (Resolved) H/O section (Resolved) Obesity affecting (Resolved) (Resolved) premature rupture of membranes (PPROM) with unknown onset of labor (Resolved) Supervision of high risk , antepartum (Resolved) Patient is a 35-year-old lady who is 4 weeks following section presented with flulike symptoms. Patient evaluation on admission consistent with sepsis admitted to regular nursing floor for further evaluation and management 1. Sepsis of undetermined etiology ?Patient managed with broad-spectrum antibiotic therapy improved clinically as well as her WBC count markedly down. Cultures including urine so far negative to date. Blood cultures still pending. Patient underwent transvaginal ultrasound with no demonstrated the presence of any retained products 2. Elevated D-dimer ?CTA negative to date 3. Acute renal insufficiency ?Resolved with rehydration 4. Hypokalemia ?Corrected per protocol 5. DVT prophylaxis - On enoxaparin Inpatient E&M: [id number] [facility] Hosp L2
[2021-01-02 09:13] VITALS: BP 112/76; PULSE 55; RESP 18; TEMP 36.5; O2SAT 96
--- NOTE | 2021-01-02 10:05 | CASEMGMT ---
RN ANA Face to Face with patient for initial transition planning/care coordination assessment. RN CM introduced self and role at [facility]. Patient lying in bed, alert and oriented. Patient willing to participate in assessment and is able to answer all questions appropriately. Care providers, pharmacy, and demographics verified. Patient wishes to discharge home, denies need for home health at this time. Patient states she has no further needs or concerns at this time. CM to follow for discharge planning needs that may arise. PCP: [facility] Specialists: None Preferred Pharmacy: [facility] Insurance: MMO Prescription Benefit: yes Living Will/HPOA: none LNOK: Living Arrangements: Patient lives with in a single story home with 2 steps with railing. Patient states she is independent at home. Transportation: self/ DME/HHC: Patient denies DME or previous HHC. Disposition Plan: Patient to discharge home with family support and follow-up plans in place. Fior WEBSTER, RN, CM
--- NOTE | 2021-01-02 11:53 | PCM.RX.CS ---
Consult Pharmacy has been consulted to manage selected antiobiotic: Vancomycin Type of Consult: Follow-up Suspected Infection: Sepsis Labs: Sodium 140 mmol/L (136-145) 01/02/21 06:45 Potassium 4.1 mmol/L (3.5-5.1) 01/02/21 06:45 Chloride 112 mmol/L (98-107) H 01/02/21 06:45 Carbon Dioxide 24.0 mmol/L (21.0-32.0) 01/02/21 06:45 Anion Gap 4 (5-15) L 01/02/21 06:45 BUN 9 mg/dL (7-18) 01/02/21 06:45 Creatinine 0.68 mg/dL (0.55-1.02) 01/02/21 06:45 Est GFR (MDRD) Af Amer 125 mL/min (>60) 01/02/21 06:45 Est GFR (MDRD) Non-Af 104 mL/min (>60) 01/02/21 06:45 BUN/Creatinine Ratio 13.3 RATIO (10-20) 01/02/21 06:45 Glucose 92 mg/dL (74-106) 01/02/21 06:45 Vancomycin Trough 13.6 ug/mL (5.0-15.0) 01/02/21 07:55 Microbiology: Microbiology 12/31/20 17:30 Interface Orders Urine Culture - Final Mixed Gram Positive Organisms 01/01/21 00:35 Mucosa - Nasopharyngeal Respiratory Panel (PCR) - Final 12/31/20 17:30 Nasal Secretion SARS-CoV-2 Antigen (Rapid) - Final Goal Trough: 15-20 mcg/mL Pharmacy Plan for Drug Dosing: VANCOMYCIN LEVEL RECEIVED Current Vancomycin Dose: 1250mg IV q12 Number of Doses Received: 2000mg IV x1, 1250mg IV x2 Vancomycin Level: 13.6 Hours Since Last Dose: 11 Renal Function: SrCr 0.68 Renal Function Trend: SrCr is improving Lab/Micro: Vancomycin Plan/Comments: recommend continuing current dose of Vancomycin 1250mg IV q12h. Pt's trough was 13.6 and she still isn't at steady state. Will recheck 01/03/21 at 1999 Pending Level:01/03/21 at 1999 Pharmacy Service will continue to monitor and adjust dosing as required. Follow-Up Labs: Trough Vancomycin - 01/03/21 at 1999
--- NOTE | 2021-01-02 12:57 | PN.OBGYN_ITS ---
Patient Problems: Active and Suspected Problems (Last Reviewed 01/01/21 @ 02:[address] Gilbert Stratton MD) SIRS (systemic inflammatory response syndrome) (Acute) Lactic acidosis (Acute) Sinus tachycardia seen on monitoring specialist (Acute) History of tetanus, diphtheria, and acellular pertussis booster vaccination (Tdap) (Acute) Subjective: Patient seen feeling. Reports doing well. States feeling back to her normal self. Denies abdominal pain. Denies fevers and chills. Continues to have light bleeding. Objective: Laboratory Tests 01/02/21 01/02/21 01/02/21 Range/Units 07:55 06:45 06:45 WBC 5.3 (4.4-11.0) K/mm3 RBC 4.09 L (4.2-5.4) M/mm3 Hgb 12.9 (12.0-15.0) g/dL Hct 40.3 (37-47) % MCV 98.5 (81-99) fL MCH 31.5 (27.0-32.0) pg MCHC 32.0 (32-36) g/dL RDW Std Deviation 50.8 H (35.1-43.9) fl RDW Coeff of Jennifer 13.8 (11.6-14.6) % Plt Count 184 (150-450) K/mm3 MPV 10.6 (6.2-12.0) fl Immature Gran % (Auto) 0.200 (0.0-0.9) % Neut % (Auto) 40.3 L (47-70) % Lymph % (Auto) 36.7 (19-41) % Gulf % (Auto) 11.5 H (0-10) % Eos % (Auto) 10.7 H (0-5) % Baso % (Auto) 0.6 (0-1) % Absolute Neuts (auto) 2.1 (2.0-7.7) X10^3/uL Absolute Lymphs (auto) 1.95 (0.83-4.51) X10^3/uL Nucleated RBC % 0 (0-5) % D-Dimer Quant (PE/DVT) (0.27-0.49) FEU/ug/m Sodium 140 (136-145) mmol/L Potassium 4.1 (3.5-5.1) mmol/L Chloride 112 H (98-107) mmol/L Carbon Dioxide 24.0 (21.0-32.0) mmol/L Anion Gap 4 L (5-15) BUN 9 (7-18) mg/dL Creatinine 0.68 (0.55-1.02) mg/dL Estim Creat Clear Calc 101.93 ml/min Est GFR (MDRD) Af Amer 125 (>60) mL/min Est GFR (MDRD) Non-Af 104 (>60) mL/min BUN/Creatinine Ratio 13.3 (10-20) RATIO Glucose 92 (74-106) mg/dL Lactic Acid (0.4-1.9) mmol/L Calcium 8.3 L (8.5-10.1) mg/dL Total Bilirubin (0.20-1.00) mg/dL AST (15-37) U/L ALT (13-56) U/L Alkaline Phosphatase (45-117) U/L Total Protein (6.4-8.2) g/dL Albumin (3.2-5.0) g/dL Globulin (2.2-4.2) g/dL Albumin/Globulin Ratio (0.9-2.4) RATIO Procalcitonin (0.00-0.09) ng/mL Urine Color (Yellow) Urine Clarity (Clear) Urine pH (5.0 - 8.0) Ur Specific [place] (1.002-1.030) Urine Protein (Negative) mg/dl Urine Glucose (UA) (Normal) mg/dl Urine Ketones (Negative) mg/dl Urine Occult Blood (Negative) /ul Urine Nitrite (Negative) Urine Bilirubin (Negative) mg/dL Urine Urobilinogen (Normal) mg/dl Ur Leukocyte Esterase (Negative) /ul Urine RBC (0-5) /hpf Urine WBC (0-5) /hpf Ur Squamous Epith Cells (5-10) /hpf Urine Bacteria (None Seen) /hpf Urine Mucus (<or=2+) /hpf Vancomycin Trough 13.6 (5.0-15.0) ug/mL COVID-19 (HAO) (Not Detect) 01/01/21 01/01/21 01/01/21 Range/Units 04:50 04:50 00:35 WBC 11.4 H (4.4-11.0) K/mm3 RBC 4.20 (4.2-5.4) M/mm3 Hgb 13.7 (12.0-15.0) g/dL Hct 41.2 (37-47) % MCV 98.1 (81-99) fL MCH 32.6 H (27.0-32.0) pg MCHC 33.3 (32-36) g/dL RDW Std Deviation 50.6 H (35.1-43.9) fl RDW Coeff of Jennifer 13.9 (11.6-14.6) % Plt Count 201 (150-450) K/mm3 MPV 10.7 (6.2-12.0) fl Immature Gran % (Auto) 0.400 (0.0-0.9) % Neut % (Auto) 76.6 H (47-70) % Lymph % (Auto) 10.2 L (19-41) % Gulf % (Auto) 6.5 (0-10) % Eos % (Auto) 5.9 H (0-5) % Baso % (Auto) 0.4 (0-1) % Absolute Neuts (auto) 8.7 H (2.0-7.7) X10^3/uL Absolute Lymphs (auto) 1.16 (0.83-4.51) X10^3/uL Nucleated RBC % 0 (0-5) % D-Dimer Quant (PE/DVT) (0.27-0.49) FEU/ug/m Sodium 139 (136-145) mmol/L Potassium 3.4 L (3.5-5.1) mmol/L Chloride 109 H (98-107) mmol/L Carbon Dioxide 24.0 (21.0-32.0) mmol/L Anion Gap 6 (5-15) BUN 8 (7-18) mg/dL Creatinine 0.75 (0.55-1.02) mg/dL Estim Creat Clear Calc 92.41 ml/min Est GFR (MDRD) Af Amer 111 (>60) mL/min Est GFR (MDRD) Non-Af 91 (>60) mL/min BUN/Creatinine Ratio 10.6 (10-20) RATIO Glucose 107 H (74-106) mg/dL Lactic Acid (0.4-1.9) mmol/L Calcium 7.9 L (8.5-10.1) mg/dL Total Bilirubin 0.40 (0.20-1.00) mg/dL AST 18 (15-37) U/L ALT 31 (13-56) U/L Alkaline Phosphatase 76 (45-117) U/L Total Protein 6.4 (6.4-8.2) g/dL Albumin 2.9 L (3.2-5.0) g/dL Globulin 3.5 (2.2-4.2) g/dL Albumin/Globulin Ratio 0.8 L (0.9-2.4) RATIO Procalcitonin (0.00-0.09) ng/mL Urine Color (Yellow) Urine Clarity (Clear) Urine pH (5.0 - 8.0) Ur Specific [place] (1.002-1.030) Urine Protein (Negative) mg/dl Urine Glucose (UA) (Normal) mg/dl Urine Ketones (Negative) mg/dl Urine Occult Blood (Negative) /ul Urine Nitrite (Negative) Urine Bilirubin (Negative) mg/dL Urine Urobilinogen (Normal) mg/dl Ur Leukocyte Esterase (Negative) /ul Urine RBC (0-5) /hpf Urine WBC (0-5) /hpf Ur Squamous Epith Cells (5-10) /hpf Urine Bacteria (None Seen) /hpf Urine Mucus (<or=2+) /hpf Vancomycin Trough (5.0-15.0) ug/mL COVID-19 (HAO) Not Detected (Not Detect) 12/31/20 12/31/20 12/31/20 Range/Units 23:43 17:50 17:50 WBC (4.4-11.0) K/mm3 RBC (4.2-5.4) M/mm3 Hgb (12.0-15.0) g/dL Hct (37-47) % MCV (81-99) fL MCH (27.0-32.0) pg MCHC (32-36) g/dL RDW Std Deviation (35.1-43.9) fl RDW Coeff of Jennifer (11.6-14.6) % Plt Count (150-450) K/mm3 MPV (6.2-12.0) fl Immature Gran % (Auto) (0.0-0.9) % Neut % (Auto) (47-70) % Lymph % (Auto) (19-41) % Gulf % (Auto) (0-10) % Eos % (Auto) (0-5) % Baso % (Auto) (0-1) % Absolute Neuts (auto) (2.0-7.7) X10^3/uL Absolute Lymphs (auto) (0.83-4.51) X10^3/uL Nucleated RBC % (0-5) % D-Dimer Quant (PE/DVT) (0.27-0.49) FEU/ug/m Sodium 136 (136-145) mmol/L Potassium 3.5 (3.5-5.1) mmol/L Chloride 105 (98-107) mmol/L Carbon Dioxide 24.0 (21.0-32.0) mmol/L Anion Gap 7 (5-15) BUN 10 (7-18) mg/dL Creatinine 1.15 H (0.55-1.02) mg/dL Estim Creat Clear Calc 60.27 ml/min Est GFR (MDRD) Af Amer 68 (>60) mL/min Est GFR (MDRD) Non-Af 56 L (>60) mL/min BUN/Creatinine Ratio 8.7 L (10-20) RATIO Glucose 113 H (74-106) mg/dL Lactic Acid 0.9 2.6 H* (0.4-1.9) mmol/L Calcium 8.7 (8.5-10.1) mg/dL Total Bilirubin (0.20-1.00) mg/dL AST (15-37) U/L ALT (13-56) U/L Alkaline Phosphatase (45-117) U/L Total Protein (6.4-8.2) g/dL Albumin (3.2-5.0) g/dL Globulin (2.2-4.2) g/dL Albumin/Globulin Ratio (0.9-2.4) RATIO Procalcitonin (0.00-0.09) ng/mL Urine Color (Yellow) Urine Clarity (Clear) Urine pH (5.0 - 8.0) Ur Specific [place] (1.002-1.030) Urine Protein (Negative) mg/dl Urine Glucose (UA) (Normal) mg/dl Urine Ketones (Negative) mg/dl Urine Occult Blood (Negative) /ul Urine Nitrite (Negative) Urine Bilirubin (Negative) mg/dL Urine Urobilinogen (Normal) mg/dl Ur Leukocyte Esterase (Negative) /ul Urine RBC (0-5) /hpf Urine WBC (0-5) /hpf Ur Squamous Epith Cells (5-10) /hpf Urine Bacteria (None Seen) /hpf Urine Mucus (<or=2+) /hpf Vancomycin Trough (5.0-15.0) ug/mL COVID-19 (HAO) (Not Detect) 12/31/20 12/31/20 12/31/20 Range/Units 17:50 17:50 17:30 WBC 21.4 H (4.4-11.0) K/mm3 RBC 4.82 (4.2-5.4) M/mm3 Hgb 15.8 H (12.0-15.0) g/dL Hct 46.9 (37-47) % MCV 97.3 (81-99) fL MCH 32.8 H (27.0-32.0) pg MCHC 33.7 (32-36) g/dL RDW Std Deviation 49.3 H (35.1-43.9) fl RDW Coeff of Jennifer 13.6 (11.6-14.6) % Plt Count 227 (150-450) K/mm3 MPV 10.6 (6.2-12.0) fl Immature Gran % (Auto) 0.500 (0.0-0.9) % Neut % (Auto) 89.9 H (47-70) % Lymph % (Auto) 3.4 L (19-41) % Gulf % (Auto) 3.7 (0-10) % Eos % (Auto) 2.0 (0-5) % Baso % (Auto) 0.5 (0-1) % Absolute Neuts (auto) 19.3 H (2.0-7.7) X10^3/uL Absolute Lymphs (auto) 0.72 L (0.83-4.51) X10^3/uL Nucleated RBC % 0 (0-5) % D-Dimer Quant (PE/DVT) 0.82 H* (0.27-0.49) FEU/ug/m Sodium (136-145) mmol/L Potassium (3.5-5.1) mmol/L Chloride (98-107) mmol/L Carbon Dioxide (21.0-32.0) mmol/L Anion Gap (5-15) BUN (7-18) mg/dL Creatinine (0.55-1.02) mg/dL Estim Creat Clear Calc ml/min Est GFR (MDRD) Af Amer (>60) mL/min Est GFR (MDRD) Non-Af (>60) mL/min BUN/Creatinine Ratio (10-20) RATIO Glucose (74-106) mg/dL Lactic Acid (0.4-1.9) mmol/L Calcium (8.5-10.1) mg/dL Total Bilirubin (0.20-1.00) mg/dL AST (15-37) U/L ALT (13-56) U/L Alkaline Phosphatase (45-117) U/L Total Protein (6.4-8.2) g/dL Albumin (3.2-5.0) g/dL Globulin (2.2-4.2) g/dL Albumin/Globulin Ratio (0.9-2.4) RATIO Procalcitonin (0.00-0.09) ng/mL Urine Color Yellow (Yellow) Urine Clarity Clear (Clear) Urine pH 8.0 (5.0 - 8.0) Ur Specific [place] 1.010 (1.002-1.030) Urine Protein 30 H (Negative) mg/dl Urine Glucose (UA) Normal (Normal) mg/dl Urine Ketones 15 H (Negative) mg/dl Urine Occult Blood 250 H (Negative) /ul Urine Nitrite Negative (Negative) Urine Bilirubin Negative (Negative) mg/dL Urine Urobilinogen Normal (Normal) mg/dl Ur Leukocyte Esterase 500 H (Negative) /ul Urine RBC 0-5 SEEN (0-5) /hpf Urine WBC 0-5 SEEN (0-5) /hpf Ur Squamous Epith Cells 5-10 SEEN (5-10) /hpf Urine Bacteria 0 SEEN (None Seen) /hpf Urine Mucus 0 SEEN (<or=2+) /hpf Vancomycin Trough (5.0-15.0) ug/mL COVID-19 (HAO) (Not Detect) 12/31/20 Range/Units 00:25 WBC (4.4-11.0) K/mm3 RBC (4.2-5.4) M/mm3 Hgb (12.0-15.0) g/dL Hct (37-47) % MCV (81-99) fL MCH (27.0-32.0) pg MCHC (32-36) g/dL RDW Std Deviation (35.1-43.9) fl RDW Coeff of Jennifer (11.6-14.6) % Plt Count (150-450) K/mm3 MPV (6.2-12.0) fl Immature Gran % (Auto) (0.0-0.9) % Neut % (Auto) (47-70) % Lymph % (Auto) (19-41) % [place] % (Auto) (0-10) % Eos % (Auto) (0-5) % Baso % (Auto) (0-1) % Absolute Neuts (auto) (2.0-7.7) X10^3/uL Absolute Lymphs (auto) (0.83-4.51) X10^3/uL Nucleated RBC % (0-5) % D-Dimer Quant (PE/DVT) (0.27-0.49) FEU/ug/m Sodium (136-145) mmol/L Potassium (3.5-5.1) mmol/L Chloride (98-107) mmol/L Carbon Dioxide (21.0-32.0) mmol/L Anion Gap (5-15) BUN (7-18) mg/dL Creatinine (0.55-1.02) mg/dL Estim Creat Clear Calc ml/min Est GFR (MDRD) Af Amer (>60) mL/min Est GFR (MDRD) Non-Af (>60) mL/min BUN/Creatinine Ratio (10-20) RATIO Glucose (74-106) mg/dL Lactic Acid (0.4-1.9) mmol/L Calcium (8.5-10.1) mg/dL Total Bilirubin (0.20-1.00) mg/dL AST (15-37) U/L ALT (13-56) U/L Alkaline Phosphatase (45-117) U/L Total Protein (6.4-8.2) g/dL Albumin (3.2-5.0) g/dL Globulin (2.2-4.2) g/dL Albumin/Globulin Ratio (0.9-2.4) RATIO Procalcitonin 0.18 H (0.00-0.09) ng/mL Urine Color (Yellow) Urine Clarity (Clear) Urine pH (5.0 - 8.0) Ur Specific [place] (1.002-1.030) Urine Protein (Negative) mg/dl Urine Glucose (UA) (Normal) mg/dl Urine Ketones (Negative) mg/dl Urine Occult Blood (Negative) /ul Urine Nitrite (Negative) Urine Bilirubin (Negative) mg/dL Urine Urobilinogen (Normal) mg/dl Ur Leukocyte Esterase (Negative) /ul Urine RBC (0-5) /hpf Urine WBC (0-5) /hpf Ur Squamous Epith Cells (5-10) /hpf Urine Bacteria (None Seen) /hpf Urine Mucus (<or=2+) /hpf Vancomycin Trough (5.0-15.0) ug/mL COVID-19 (HAO) (Not Detect) - Physical Exam Vitals/I&O's: Vital Signs Temp Pulse Resp BP Pulse Ox 97.7 F L 55 L 18 112/76 96 01/02/21 09:13 01/02/21 09:13 01/02/21 09:13 01/02/21 09:13 01/02/21 09:13 Oxygen Delivery Method Room Air Weight: 216 lb 4.375 oz Body Mass Index (BMI) 35.9 Intake and Output for Last 24 Hours 12/31/20 01/01/21 01/02/21 23:59 23:59 23:59 Intake Total 1140 / 1490 2520 / 2520 615 / 615 Output Total 360 / 360 Balance 1140 / 1490 2160 / 2160 615 / 615 General: Alert, Oriented x3, Cooperative, No apparent distress, Well developed, Well nourished HEENT: Atraumatic, PERRLA, EOMI, Normocephalic Neck: Supple Lungs: Normal air movement Cardiovascular: Regular rate Abdomen: Soft, Non Tender, Non-Distended Extremities: No edema, No Calf Tenderness Neurological: Cranial nerves II-XII grossly intact, Neuro grossly intact Psych/Mental Status: Normal Affect, Appropriate Microbiology Past 72 Hours 12/31/20 17:30 Interface Orders Urine Culture - Final Mixed Gram Positive Organisms 01/01/21 00:35 Mucosa - Nasopharyngeal Respiratory Panel (PCR) - Final 12/31/20 17:30 Nasal Secretion SARS-CoV-2 Antigen (Rapid) - Final Laboratory Results 01/02/21 06:45: WBC 5.3, RBC 4.09 L, Hgb 12.9, Hct 40.3, MCV 98.5, MCH 31.5, MCHC 32.0, RDW Std Deviation 50.8 H, RDW Coeff of Jennifer 13.8, Plt Count 184, MPV 10.6, Immature Gran % (Auto) 0.200, Neut % (Auto) 40.3 L, Lymph % (Auto) 36.7, [place] % (Auto) 11.5 H, Eos % (Auto) 10.7 H, Baso % (Auto) 0.6, Absolute Neuts (auto) 2.1, Absolute Lymphs (auto) 1.95, Nucleated RBC % 0 01/02/21 06:45: Sodium 140, Potassium 4.1, Chloride 112 H, Carbon Dioxide 24.0, Anion Gap 4 L, BUN 9, Creatinine 0.68, Estim Creat Clear Calc 101.93, Est GFR (MDRD) Af Amer 125, Est GFR (MDRD) Non-Af 104, BUN/Creatinine Ratio 13.3, Glucose 92, Calcium 8.3 L 01/02/21 07:55: Vancomycin Trough 13.6 Current Medications Acetaminophen (Acetaminophen 325 Mg Tablet) 650 mg PO Q6H PRN PRN PRN Reason: Pain Score 1-10/Temp > 100.7 F Last Admin: 01/01/21 13:34 Dose: 650 mg Documented by: Clotrimazole (Clotrimazole 1 Applic Tube) 1 applic TOPICAL BID [facility]; Protocol Last Admin: 01/02/21 08:28 Dose: 1 applic Documented by: Enoxaparin Sodium (Enoxaparin 40 Mg/0.4 Ml Syringe) 40 mg SC DAILY@0600 [facility] Last Admin: 01/02/21 06:05 Dose: 40 mg Documented by: Vancomycin IV Pharmacy to Dose (1 each/ Sodium Chloride) 500 mls @ 250 mls/hr IV PRN PRN; Protocol PRN Reason: Rx to Dose Piperacillin Sod/Tazobactam (Sod 3.375 gm/ Sodium Chloride) 50 mls @ 12.5 mls/hr IV Q8 [facility] Last Infusion: 01/02/21 10:12 Dose: Infused Documented by: Vancomycin HCl 1,250 mg/ (Sodium Chloride) 275 mls @ 167 mls/hr IV Q12H JORGE A Last Infusion: 01/02/21 10:42 Dose: Infused Documented by: Melatonin (Melatonin 3 Mg Tablet) 3 mg PO QHS PRN PRN PRN Reason: INSOMNIA Ondansetron HCl (Ondansetron 4 Mg/2 Ml Vial) 4 mg IV Q8H PRN PRN PRN Reason: NAUSEA/VOMITING Sodium Chloride (0.9% Saline Lock 10 Ml Syringe) 10 - 40 ml IV UD PRN PRN Reason: SALINE FLUSH Last Admin: 01/02/21 06:05 Dose: 10 ml Documented by: Medical Necessity - Tobacco Use Smoking Status: Former smoker Assessment/Plan All Active Problems (Last Reviewed 01/01/21 @ 02:[address] Gilbert Stratton MD) SIRS (systemic inflammatory response syndrome) (Acute) Lactic acidosis (Acute) Sinus tachycardia seen on monitoring specialist (Acute) History of tetanus, diphtheria, and acellular pertussis booster vaccination (Tdap) (Acute) 37 weeks gestation of (Resolved) Advanced maternal age risk, currently (Resolved) COVID-19 virus detected (Resolved) H/O section (Resolved) Obesity affecting (Resolved) (Resolved) premature rupture of membranes (PPROM) with unknown onset of labor (Resolved) Supervision of high risk , antepartum (Resolved) 35-year-old female G2, P2 status post repeat on 11/28 admitted for se su sepsis of unknown etiology Sepsis of unknown etiology -Symptoms continue to improve -Admitted to hospitalist service -On vancomycin and Zosyn -Leukocytosis and lactic acidosis resolved -Ultrasound done yesterday showed 6 mm lining with no evidence of retained products or endometritis -Dispo per primary -We will continue to follow peripherally. Please call if any further input needed on care plan state -Continue vitamin -Okay to continue breast-feeding while on antibiotics-breast pump given
[2021-01-02 15:15] VITALS: BP 103/65; PULSE 55; RESP 18; TEMP 36.6; O2SAT 98
[2021-01-02 20:30] VITALS: BP 112/74; PULSE 66; RESP 16; TEMP 36.6; O2SAT 94
[2021-01-03 02:35] VITALS: BP 98/58; PULSE 56; RESP 16; TEMP 36.6; O2SAT 97
[2021-01-03] MEDS: Enoxaparin 40 MG/0.4 ML Syringe SC (05:38)
[2021-01-03 07:23] LABS: Hematocrit 40.5 % (37-47); Hemoglobin 13.2 g/dL (12.0-15.0); Mean Corp Hgb Conc 32.6 g/dL (32-36); Mean Corpuscular Volume 98.3 fL (81-99); Mean Platelet Vol. 10.3 fl (6.2-12.0); Platelet Count 235 K/mm3 (150-450); RBC Distribution Width CV 13.6 % (11.6-14.6); RBC Distribution Width SD 49.2 fl (35.1-43.9); Red Blood Count 4.12 M/mm3 (4.2-5.4); White Blood Count 5.4 K/mm3 (4.4-11.0)
[2021-01-03 07:54] VITALS: BP 107/60; PULSE 57; RESP 18; TEMP 37.1; O2SAT 98
[2021-01-03 08:11] LABS: Anion Gap 5 (5-15); BUN 8 mg/dL (7-18); BUN/Creat Ratio 9.9 RATIO (10-20); Calcium,Total 8.6 mg/dL (8.5-10.1); Chloride 110 mmol/L (98-107); Creatinine, Serum 0.81 mg/dL (0.55-1.02); EST Glomerular Filtration Rate 84 mL/min (>60); Est Glom Filt Rate - Afr Amer 102 mL/min (>60); Estimated Creatinine Clearance 85.57 ml/min; Glucose 89 mg/dL (74-106); Potassium 3.7 mmol/L (3.5-5.1); Sodium Level 140 mmol/L (136-145)
--- NOTE | 2021-01-03 08:54 | PCM.DC ---
- Discharge Diagnoses Current Active Problems: Current Active and Chronic Problems (Last Reviewed 01/01/21 @ 02:[address] Gilbert Stratton MD) No significant past medical history (Chronic) SIRS (systemic inflammatory response syndrome) (Acute) Lactic acidosis (Acute) Sinus tachycardia seen on engine monitor (Acute) Uterine fibroid (Chronic) right fundal fibroid measuring 4.3 x 3.6 x 3.7 cm History of tetanus, diphtheria, and acellular pertussis booster vaccination (Tdap) (Acute) You will use the following diet at home:: No restrictions Discharge Activity: Return to Normal Activity Allergies/Adverse Reactions: Allergies No Known Allergies Allergy (Verified 12/31/20 17:11) Medications to take at Discharge Clotrimazole [Lotrimin] 1 applicatio TOPICAL BID 12/31/20 Primary Care Physician: Sekou Holder DO [Primary Care Provider] - Please follow up with your Primary Care Physician in: IN 1 WEEK Test Results: Test results from this visit will be discussed in further detail at your follow-up appointment, if applicable. Proposed Discharge Date: 01/03/21
--- NOTE | 2021-01-03 08:55 | PCM.DC.SUM ---
Discharge Date and Diagnosis - Problem List Patient Problems: Active and Suspected Problems (Last Reviewed 01/01/21 @ 02:[address] Gilbert Stratton MD) SIRS (systemic inflammatory response syndrome) (Acute) Lactic acidosis (Acute) Sinus tachycardia seen on lunchroom monitor (Acute) History of tetanus, diphtheria, and acellular pertussis booster vaccination (Tdap) (Acute) Date of Admission: 12/31/20 Date of Discharge: 01/03/21 - Primary Discharge Diagnosis Acute Problems: Active Problems (Last Reviewed 01/01/21 @ 02:[address] Gilbert Stratton MD) SIRS (systemic inflammatory response syndrome) (Acute) Lactic acidosis (Acute) Sinus tachycardia seen on lunchroom monitor (Acute) History of tetanus, diphtheria, and acellular pertussis booster vaccination (Tdap) (Acute) - Secondary Discharge Diagnosis Chronic Problems: Chronic Problems (Last Reviewed 01/01/21 @ 02:[address] Gilbert Stratton MD) No significant past medical history (Chronic) Uterine fibroid (Chronic) right fundal fibroid measuring 4.3 x 3.6 x 3.7 cm Hospital Course and Treatment Imaging Results: Clinical Impression(s) from Imaging Studies Chest X-Ray 12/31/20 18:04 IMPRESSION: Nonacute portable x-ray examination of the chest. Electronically Signed: Francisco Naranjo MD ([place]) at 18:19 EDT , Service support , Chest CTA 12/31/20 18:26 IMPRESSION: 1. No central or segmental pulmonary embolism. 2. No airspace consolidation/pneumonia. 3. Mild splenomegaly. Electronically Signed: Francisco Naranjo MD ([place]) at 18:51 EDT , Service support , Pelvis CT 12/31/20 19:29 IMPRESSION: No definite acute or significant abnormality seen. Electronically Signed: Byron Cage MD at 20:23 EDT , Service support , Pelvis Ultrasound 01/01/21 10:00 IMPRESSION: Normal female pelvis. Electronically Signed: Ko Muniz MD at 11:26 EDT Tel , Service support , Transvaginal US 01/01/21 10:00 IMPRESSION: Normal female pelvis. Electronically Signed: Ko Muniz MD at 11:26 EDT Tel , Service support , Summary of Care Provided: Patient is a 35-year-old lady who is 4 weeks following section presented with flulike symptoms. Patient evaluation on admission consistent with sepsis admitted to regular nursing floor for further evaluation and management 1. Sepsis of undetermined etiology ?Patient managed with broad-spectrum antibiotic therapy improved clinically as well as her WBC count markedly down. Cultures including urine so far negative to date. Blood cultures still pending. Patient underwent transvaginal ultrasound with no demonstrated the presence of any retained products -Condition did improve without identifying the source of her sepsis. 2. Elevated D-dimer ?CTA negative to date 3. Acute renal insufficiency ?Resolved with rehydration 4. Hypokalemia ?Corrected per protocol 5. DVT prophylaxis - On enoxaparin Patient Problems: Active and Suspected Problems (Last Reviewed 01/01/21 @ 02:[address] Gilbert Stratton MD) SIRS (systemic inflammatory response syndrome) (Acute) Lactic acidosis (Acute) Sinus tachycardia seen on lunchroom monitor (Acute) History of tetanus, diphtheria, and acellular pertussis booster vaccination (Tdap) (Acute) Objective: GENERAL: cooperative HEENT: Atraumatic; EYES; Anicteric, Normal Conjunctiva NECK; supple, normal thyroid, RESPIRATORY: Diminished to auscultation CARDIOVASCULAR: Regular S1 S2, GI: soft, normoactive bowel sounds, : No Renal angle tenderness; EXTREMITIES: No edema, no clubbing, MUSCULOSKELETAL: no muscle waisting NEURO: Awake; no lateralizing signs. SKIN: No Rash PSYCH; Flat affect - Physical Exam Vitals/I&O's: Vital Signs Temp Pulse Resp BP Pulse Ox 98.8 F 57 L 18 107/60 98 01/03/21 07:54 04/20/21 07:54 01/03/21 07:54 01/03/21 07:54 01/03/21 07:54 Oxygen Delivery Method Room Air Weight: 98 kg Body Mass Index (BMI) 35.9 Intake and Output for Last 24 Hours 01/01/21 01/02/21 01/03/21 23:59 23:59 23:59 Intake Total 2520 / 2520 1560 / 1560 50 / 50 Output Total 360 / 360 Balance 2160 / 2160 1560 / 1560 50 / 50 Microbiology Past 72 Hours 12/31/20 18:50 Blood Culture (Wb) - Right Wrist Blood Culture - Preliminary No growth in 48 hours. 12/31/20 17:50 Blood Culture (Wb) - Anticubital Right Blood Culture - Preliminary No growth in 48 hours. 12/31/20 17:30 Interface Orders Urine Culture - Final Mixed Gram Positive Organisms 01/01/21 00:35 Mucosa - Nasopharyngeal Respiratory Panel (PCR) - Final 12/31/20 17:30 Nasal Secretion SARS-CoV-2 Antigen (Rapid) - Final Laboratory Results 01/03/21 07:14: WBC 5.4, RBC 4.12 L, Hgb 13.2, Hct 40.5, MCV 98.3, MCH 32.0, MCHC 32.6, RDW Std Deviation 49.2 H, RDW Coeff of Jennifer 13.6, Plt Count 235, MPV 10.3 01/03/21 07:14: Sodium 140, Potassium 3.7, Chloride 110 H, Carbon Dioxide 25.0, Anion Gap 5, BUN 8, Creatinine 0.81, Estim Creat Clear Calc 85.57, Est GFR (MDRD) Af Amer 102, Est GFR (MDRD) Non-Af 84, BUN/Creatinine Ratio 9.9 L, Glucose 89, Calcium 8.6, Magnesium 2.0 Current Medications Acetaminophen (Acetaminophen 325 Mg Tablet) 650 mg PO Q6H PRN PRN PRN Reason: Pain Score 1-10/Temp > 100.7 F Last Admin: 01/01/21 13:34 Dose: 650 mg Documented by: Clotrimazole (Clotrimazole 1 Applic Tube) 1 applic TOPICAL BID [facility]; Protocol Last Admin: 01/02/21 22:00 Dose: 1 applic Documented by: Enoxaparin Sodium (Enoxaparin 40 Mg/0.4 Ml Syringe) 40 mg SC DAILY@0600 [facility] Last Admin: 01/03/21 05:38 Dose: 40 mg Documented by: Vancomycin IV Pharmacy to Dose (1 each/ Sodium Chloride) 500 mls @ 250 mls/hr IV PRN PRN; Protocol PRN Reason: Rx to Dose Piperacillin Sod/Tazobactam (Sod 3.375 gm/ Sodium Chloride) 50 mls @ 12.5 mls/hr IV Q8 JORGE A Last Admin: 01/03/21 05:38 Dose: 12.5 mls/hr Documented by: Vancomycin HCl 1,250 mg/ (Sodium Chloride) 275 mls @ 167 mls/hr IV Q12H [facility] Last Infusion: 01/02/21 21:55 Dose: Infused Documented by: Melatonin (Melatonin 3 Mg Tablet) 3 mg PO QHS PRN PRN PRN Reason: INSOMNIA Ondansetron HCl (Ondansetron 4 Mg/2 Ml Vial) 4 mg IV Q8H PRN PRN PRN Reason: NAUSEA/VOMITING Sodium Chloride (0.9% Saline Lock 10 Ml Syringe) 10 - 40 ml IV UD PRN PRN Reason: SALINE FLUSH Last Admin: 01/02/21 14:21 Dose: 10 ml Documented by: Discharge Diet: No Restrictions Discharge Activity: Return to Normal Activity Home Medications: Medications to take at Discharge Clotrimazole [Lotrimin] 1 applicatio TOPICAL BID 12/31/20 Primary Care Physician: Sekou Holder DO [Primary Care Provider] - Please follow up with your Primary Care Physician in: IN 1 WEEK Disposition: Home Minutes spent on discharge:: 35 Patient Condition:: Stable Medical Necessity - Tobacco Use Smoking Status: Former smoker Meaningful Use Info Meaningful Use Diagnoses (Choose all that apply): None applicable Inpatient E&M: 83224 Disch Hosp
--- NOTE | 2021-01-03 09:30 | PHA.DC.MR ---
Pharmacy Service has performed discharge medication reconciliation for this patient. The patient's discharge medication list was reviewed for discrepancies and discrepancies were resolved. Home Medications Clotrimazole [Lotrimin] 1 applicatio TOPICAL BID 12/31/20
[2021-01-03 09:46] VITALS: BP 120/63; PULSE 68; RESP 18; TEMP 36.6; O2SAT 98
== END 2021-01-03 10:42 | disposition home or self-care (01) | DRG 872 ==
LOC: ED 21:35 → ICU 21:45 → MS3 01-01 12:56
PROVIDERS: Internal Medicine; Admitting Provider Hospitalist; Emergency Provider Emergency Medicine; PCP Preventive Medicine Occupational Medicine; Visit Provider Internal Medicine
DX: A41.9 Sepsis, unspecified organism (principal); E87.2 Acidosis; N28.9 Disorder of kidney and ureter, unspecified; E87.6 Hypokalemia; Z86.16 Personal history of COVID-19; Z87.891 Personal history of nicotine dependence
CPT/HCPCS: 36415; 71045; 71275; 72193; 76830; 76856; 80048; 80053; 80202; 81001; 83605; 83735; 84145; 85025; 85027; 85379; 87040; 87086; 87088; 87426; 87633; 87635; 93005; 99285; J7030; J7040; J7050; Q9967; A4216; U0002

== ENCOUNTER → 2023-12-12 | Outpatient (CLI) | payer OTHER, SELFPAY ==
--- NOTE | 2023-12-12 10:25 | BI_ITS ---
MAMMOGRAPHY - BILATERAL SCREENING REASON FOR EXAM: Female, 38 years old. Routine annual screening examination. PERTINENT HISTORY: Mother with breast cancer. Aunt with breast cancer. TECHNIQUE: Digital bilateral breast kirstin (3D mammographic acquisition) in the CC and MLO projections. 2-D mediolateral oblique (MLO) and craniocaudad (CC) views of both breasts were obtained. CAD: Full Field Digital Mammography with Computer Added Detection was performed. COMPARISON: None. Baseline examination. FINDINGS: Breast Composition: There are scattered areas of fibroglandular density. There are no dominant masses or suspicious calcifications. No other significant abnormalities are identified. BI/SCRN MAMM (CAD)W/KIRSTIN BILAT IMPRESSION: Negative screening mammogram. Yearly followup mammogram recommended. (A) ASSESSMENT CATEGORY: BIRADS Category 1: Negative. A letter regarding these results will be sent to the patient by the facility within 30 days. Approximately 10% of breast cancers are not detected by mammography. A normal mammogram should not delay biopsy of a clinically suspicious abnormality. [id number] Electronically Signed: Rocael Sharif MD at 12:17 EDT ,
== END | disposition home or self-care (01) ==
LOC: OPBI 10:25
PROVIDERS: PCP Preventive Medicine Occupational Medicine; Referring Provider Obstetrics & Gynecology; Visit Provider Obstetrics & Gynecology
DX: Z12.31 Encounter for screening mammogram for malignant neoplasm of breast (principal); Z80.3 Family history of malignant neoplasm of breast
CPT/HCPCS: 77063; 77067